=== PATIENT | female | born 1965 | race Caucasian/White ===

== ENCOUNTER → 2017-10-29 | Outpatient (CLI) | payer OTHER ==
[~2017-10-29] MED LIST: ASPI325 PO; Ativan1 MG PO; CLOP75 PO; COLCRYS0.6 MG PO; Crutch1 EACH MISC; GABA300 PO; LISI5 PO; LOSA25 PO; Lopressor 25 mg25 MG PO; METO50 PO; NITR.6SL PO; Nitrostat0.4 MG SL; Percocet 5-3251 EACH PO; Roxicodone5 MG PO; VICODIN 5-3001 EACH PO
[2017-10-31 15:22] LABS: HPV Genotype 16 Not Detected (NOTDET); HPV Genotype 18 Not Detected (NOTDET)
[2017-11-06 12:06] LABS: HPV High Risk Other Detected (NOTDET)
== END | disposition home or self-care (01) ==
LOC: LAB 15:04
PROVIDERS: Obstetrics & Gynecology
DX: Z01.419 Encounter for gynecological examination (general) (routine) without abnormal findings (principal)
CPT/HCPCS: 87624; G0123

== ENCOUNTER → 2019-05-28 | Outpatient (CLI) | payer BC, OTHER ==
[2019-05-30 14:07] LABS: HPV 16 Negative (Negative); HPV 18 Negative (Negative); HPV OTHER HR TYPES Negative (Negative)
== END ==
LOC: LAB 16:25 → LAB SHORT 16:25
PROVIDERS: Nurse Practitioner Family
DX: Z12.4 Encounter for screening for malignant neoplasm of cervix (principal)
CPT/HCPCS: 87070; 87205; 87624; 88175

== ENCOUNTER 2019-12-30 12:24 | Emergency (ER) | payer OTHER ==
[~2019-12-30] VITALS: Ht 165.1 cm; Wt 65.8 kg
[2019-12-30 12:43] LABS: BASOPHILS ABSOLUTE AUTO 0.04 K/mm3 (0.00-0.23); BASOPHILS PERCENT AUTO 1 % (0-2); EOSINOPHILS ABSOLUTE AUTO 0.05 K/mm3 (0.00-0.68); EOSINOPHILS PERCENT AUTO 1 % (0-6); Hematocrit 48.3 % (33.0-51.0); Hemoglobin 16.3 g/dL (11.5-16.0); IMMATURE GRAN ABSOLUTE AUTO 0.02 K/mm3 (0.00-0.10); IMMATURE GRAN PERCENT AUTO 0 % (0-1); LYMPHOCYTES ABSOLUTE AUTO 2.27 K/mm3 (0.84-5.20); LYMPHOCYTES PERCENT AUTO 28 % (21-46); MONOCYTES ABSOLUTE AUTO 0.58 K/mm3 (0.16-1.47); MONOCYTES PERCENT AUTO 7 % (4-13); Mean Corpuscular HGB 31.7 pg (26.0-34.0); Mean Corpuscular HGB Conc 33.7 g/dL (31.5-36.5); Mean Corpuscular Volume 94 fL (80-100); Mean Platelet Volume 10.6 fL (9.1-12.4); NEUTROPHILS ABSOLUTE AUTO 5.16 K/mm3 (1.96-9.15); NEUTROPHILS PERCENT AUTO 64 % (41-73); Platelet Count 323 K/mm3 (150-400); RDW Coefficient Variation 12.1 % (11.7-14.2); RDW Standard Deviation 42.4 fL (35.1-46.3); Red Blood Cell Count 5.14 M/mm3 (3.80-5.20); White Blood Cell Count 8.12 K/mm3 (4.00-11.30)
[2019-12-30] MEDS ORDERED: Aspir 8181 MG PO (12:44)
[2019-12-30] MEDS ORDERED: EZET10 PO (12:45)
[2019-12-30] MEDS ORDERED: Crestor20 MG PO (12:45)
[2019-12-30] MEDS ORDERED: AMLO5 PO ×2 (12:46→14:34)
[2019-12-30 13:05] LABS: Alanine Aminotransfer (ALT/SGP 60 U/L (12-78); Albumin, Blood 4.4 g/dL (3.4-5.0); Albumin/Globulin Ratio 1.2 (0.8-1.8); Alk Phos 150 U/L (50-136); Anion Gap 8 mmol/L (6-16); Aspartate Aminotrans (AST/SGOT 42 U/L (12-37); Bilirubin, Total 0.5 mg/dL (0.1-1.0); Blood Urea Nitrogen 34 mg/dL (8-24); CO2, Blood 26 mmol/L (21-32); Calcium, Blood 9.7 mg/dL (8.5-10.1); Chloride, Blood 106 mmol/L (98-108); Creatinine, Blood 0.87 mg/dL (0.40-1.00); Globulin, Blood 3.6 g/dL (2.2-4.0); Glomerular Filtration Rate >60 (60-); Glucose, Blood 101 mg/dL (70-99); Potassium, Blood 3.6 mmol/L (3.5-5.5); Sodium, Blood 140 mmol/L (136-145); Troponin I <0.015 ng/mL (0.000-0.040)
[2019-12-30] MEDS ORDERED: Nitrostat0.4 MG SL (14:34)
== END 2019-12-30 14:48 | disposition home or self-care (01) ==
LOC: ER 12:24
PROVIDERS: Emergency Medicine
DX: I20.8 Other forms of angina pectoris (principal); I10 Essential (primary) hypertension; I25.2 Old myocardial infarction; Z87.891 Personal history of nicotine dependence; Z95.5 Presence of coronary angioplasty implant and graft; Z88.2 Allergy status to sulfonamides; Z88.6 Allergy status to analgesic agent; Z88.8 Allergy status to other drugs, medicaments and biological substances; Z79.82 Long term (current) use of aspirin; Z79.899 Other long term (current) drug therapy
CPT/HCPCS: 71046; 80053; 83690; 84484; 85025; 93005; 93010; 99285-25

== ENCOUNTER 2020-07-26 07:52 | Inpatient (IN) | payer OTHER ==
[~2020-07-26] VITALS: Ht 165.1 cm; Wt 79.0 kg
[~2020-07-26 07:52] MED LIST changes: +AMLO5 PO; +Aspir 8181 MG PO; +Crestor20 MG PO; +EZET10 PO
[2020-07-26] MEDS ORDERED: NEBI5 PO (08:17)
[2020-07-26] MEDS ORDERED: ISOMON20 (08:18)
[2020-07-26 08:27] LABS: BASOPHILS ABSOLUTE AUTO 0.09 K/mm3 (0.00-0.23); BASOPHILS PERCENT AUTO 1 % (0-2); EOSINOPHILS ABSOLUTE AUTO 0.45 K/mm3 (0.00-0.68); EOSINOPHILS PERCENT AUTO 5 % (0-6); Hematocrit 44.7 % (33.0-51.0); IMMATURE GRAN ABSOLUTE AUTO 0.04 K/mm3 (0.00-0.10); IMMATURE GRAN PERCENT AUTO 0 % (0-1); LYMPHOCYTES ABSOLUTE AUTO 2.79 K/mm3 (0.84-5.20); LYMPHOCYTES PERCENT AUTO 29 % (21-46); MONOCYTES ABSOLUTE AUTO 0.72 K/mm3 (0.16-1.47); MONOCYTES PERCENT AUTO 7 % (4-13); Mean Corpuscular HGB 31.8 pg (26.0-34.0); Mean Corpuscular HGB Conc 33.6 g/dL (31.5-36.5); Mean Corpuscular Volume 95 fL (80-100); Mean Platelet Volume 10.3 fL (9.1-12.4); NEUTROPHILS ABSOLUTE AUTO 5.71 K/mm3 (1.96-9.15); NEUTROPHILS PERCENT AUTO 58 % (41-73); Platelet Count 330 K/mm3 (150-400); RDW Coefficient Variation 14.6 % (11.7-14.2); RDW Standard Deviation 50.7 fL (35.1-46.3); Red Blood Cell Count 4.72 M/mm3 (3.80-5.20)
[2020-07-26 08:51] LABS: Alanine Aminotransfer (ALT/SGP 76 U/L (12-78); Albumin, Blood 3.7 g/dL (3.4-5.0); Albumin/Globulin Ratio 1.1 (0.8-1.8); Alk Phos 178 U/L (50-136); Anion Gap 9 mmol/L (6-16); Aspartate Aminotrans (AST/SGOT 98 U/L (12-37); Bilirubin, Total 0.4 mg/dL (0.1-1.0); Blood Urea Nitrogen 10 mg/dL (8-24); Bun/Creatinine Ratio 12.5 (12.0-20.0); CO2, Blood 25 mmol/L (21-32); Calcium, Blood 8.8 mg/dL (8.5-10.1); Chloride, Blood 109 mmol/L (98-108); Globulin, Blood 3.5 g/dL (2.2-4.0); Glomerular Filtration Rate >60 (60-); Glucose, Blood 128 mg/dL (70-99); Magnesium, Blood 1.9 mg/dL (1.6-2.4); Potassium, Blood 2.9 mmol/L (3.5-5.5); Sodium, Blood 143 mmol/L (136-145); Total Protein, Blood 7.2 g/dL (6.4-8.2); Troponin I <0.015 ng/mL (0.000-0.040)
[2020-07-26 09:52] LABS: International Normalized Ratio 0.99; Prothrombin Time Results 10.6 Sec (9.7-11.5)
[2020-07-26] MEDS ORDERED: OXYC10TA19 PO (11:38)
[2020-07-26] MEDS ORDERED: ISOSORBIDE MONO30 MG PO (11:40)
[2020-07-26] MEDS ORDERED: LISI20 PO (11:40)
--- NOTE | 2020-07-26 18:22 | NUR ---
PT ARRIVAL ON UNIT... PT ARRIVED ON UNIT APROX 1630, PT IS A&Ox4 AND S/P ANGIO W/STENT ON A NITRO GTT RUNNING AT 80MCG/MIN. PT HAS RIGHT RADIAL ACCESS WITH TR BAND IN PLACE, NO SWELLING BLEEDING OR HEMATOMA NOTED AT THE SITE. PT IS IN SINUS ANU IN THE 50'S, PT'S BP STABLE. PT C/O OF 3/10 CHEST PAIN AND A HEADACHE OF 8/10. PT MEDICATED PER EMAR WITH MINIMAL RESULTS FOR THE HEADACHE. NO EDEMA NOTED ON ASSESSMENT. L/S SLIGHTLY COARSE T/O PT IS ON RA W/O2 SATS>92%. BT PRESENT AND HYPERACTIVE ABD IS SOFT AND NONTENDER TO PALP. PT'S AT THE BEDSIDE ON ARRIVAL. PER DECREASE THE NITRO GTT BY 10MCG PER OUR UNTIL OFF. CALL LIGHT IN REACH WILL CONTINUE TO MONITOR UNTIL REPORT IS GIVEN TO ONCOMING RN.
--- NOTE | 2020-07-26 19:00 | NUR ---
ASSUMED CARE NOTE: ASSUMED CARE OF PT 1899, RECEVIED REPORT FROM MINAL TREVINO. PT IS ALERT/ORIENTEDX4, ABLE TO COMMUNICATE NEEDS EFFECTIVLEY. PT IS ON RA WITH SPO2 AT 97% PT IN SINUS ANU WITH HR IN THE HIGH 50'S. PT C/O 10/10 HEADACHE, AND 2/10 CHEST PAIN. NITRO DRIP AT 40MCG/MIN. TR BAND RIGHT RADIAL ACCESS SITE IN PLACE WITH 8CC AIR INFLATED, PER REPORT. NO ACTIVE BLEEDING TO SITE, SMALL HEMATOMA NOTED, WARM, PINK, SLIGHT SWELLING TO HAND, RING REMOVED, GOOD PULSE. PT IS A STAND BY ASSIST TO BEDSIDE TOILET. WILL CONTINUE TO MONITOR PT T/O SHIFT.
--- NOTE | 2020-07-26 20:40 | NUR ---
CALLED REGARDING PT'S HEADACHE 07/24 PAIN RELATED TO NITRO. ORDERS TO D/C NITRO GIVEN. ORDERS TO INCREASE NORVASC TO 5MG BID GIVEN. WILL CONTINUE TO CY
--- NOTE | 2020-07-26 21:14 | NUR ---
UPDATE: CALLED REGARDING PT'S 07/24 HEADACHE. ORDERS FOR ONE TIME DOSE OF MORPHINE GIVEN.
--- NOTE | 2020-07-26 23:56 | NUR ---
TR BAND OFF, NO ACTIVE BLEEDING TO SITE, SMALL HEMATOMA NOTICED ABOVE SITE. RIGHT HAND IS WARM, PINK, NO NUMBNESS OR TINGLING TO SITE. WILL CONTINUE TO MONITOR.
[2020-07-27 03:24] LABS: Hematocrit 35.5 % (33.0-51.0); Hemoglobin 11.8 g/dL (11.5-16.0); Mean Corpuscular HGB 31.6 pg (26.0-34.0); Mean Corpuscular HGB Conc 33.2 g/dL (31.5-36.5); Mean Corpuscular Volume 95 fL (80-100); Mean Platelet Volume 10.2 fL (9.1-12.4); Platelet Count 216 K/mm3 (150-400); RDW Coefficient Variation 14.8 % (11.7-14.2); RDW Standard Deviation 50.7 fL (35.1-46.3); Red Blood Cell Count 3.74 M/mm3 (3.80-5.20); White Blood Cell Count 5.96 K/mm3 (4.00-11.30)
[2020-07-27 03:42] LABS: Alanine Aminotransfer (ALT/SGP 66 U/L (12-78); Albumin, Blood 2.9 g/dL (3.4-5.0); Alk Phos 145 U/L (50-136); Anion Gap 7 mmol/L (6-16); Aspartate Aminotrans (AST/SGOT 94 U/L (12-37); Bilirubin, Total 0.7 mg/dL (0.1-1.0); Blood Urea Nitrogen 11 mg/dL (8-24); Bun/Creatinine Ratio 16.5 (12.0-20.0); CO2, Blood 25 mmol/L (21-32); Calcium, Blood 8.2 mg/dL (8.5-10.1); Chloride, Blood 111 mmol/L (98-108); Creatinine, Blood 0.67 mg/dL (0.40-1.00); Globulin, Blood 2.9 g/dL (2.2-4.0); Glomerular Filtration Rate >60 (60-); Glucose, Blood 86 mg/dL (70-99); Potassium, Blood 3.6 mmol/L (3.5-5.5); Sodium, Blood 143 mmol/L (136-145); Total Protein, Blood 5.8 g/dL (6.4-8.2)
--- NOTE | 2020-07-27 04:22 | NUR ---
UPDATE: CALLED REGARDING BP, CP 02/21. ORDERS FOR NIRCARDIPINE DRIP, GI COCKTAIL, AND 40MG OF PROTONIX IV NOW.
--- NOTE | 2020-07-27 06:17 | NUR ---
SHIFT SUMMARY: SEE PREVIOUS NOTES. CALLED, ORDERED TO CONTINUE NICARDIPINE DRIP (IF INTICATED) AFTER AM P.O. BLOOD PRESSURES , TITRATE DRIP 3-4 HOURS AFTER MEDICATION. PT CONTINUES TO BE ALERT AND ORIENTEDX4. PT ON RA WITH SPO2 ABOVE 90% PT IN SINUS ANU WITH HR IN THE 50'S, PT C/O CP (SEE PREVIOUS NOTE) T/O SHIFT, PHYSICAN AWARE. PT STS C/P HAS RESOLVED SINCE NICARDIPINE STARTED. BP STABLE, NICARDIPINE DRIP AT 5MG/HR. PT STS HEADACHE HAS ALSO IMPROVED. PT RECEVIED MORPHINE PER EMAR FOR PAIN, WITH LITTLE TO NO EFFECT. WILL CONTINUE TO MONITOR PT UNTIL REPORT IS GIVEN TO ONCOMING SHIFT.
--- NOTE | 2020-07-27 08:00 | NUR ---
Received reort from Josie TREVINO. Patient awake when entering room and is able to communicate her needs clearly. She is on RA and sats 98% on RA. Her Radial access on right radial has clear opsite in place and no hematoma or bleeding. It is slighly tender to touch. She has 20 ga IV to RAC dressing intact and site WNL's and is infusing Nicardipine at 5 mg/hr and reduced to 2.5 mg/hrat 0700. MAEW and is SBA when up out of bed to use bathroom. She has 20ga IV in LAC dressing intact and site WNL's flushed and SL'd.
--- NOTE | 2020-07-27 09:10 | NUR ---
Patient tolerated am meds well. She has renal US and is done. Dr Cárdenas by and stated after am meds stop Nicardipine gtt. She was up to bathroom with SBA, and tolerated well. She denies wanting breakfast currently. Medicated ealier for 9/10 pain for headache. and is doing better now.
--- NOTE | 2020-07-27 12:30 | NUR ---
Patient is now PCU status. She states has ongoing headache that decreases briefly then comes back 9/10. Independent in room. VSS, See EMR. Dr Cárdenas wants to keep another day to monitor BP, currently 140 systolic. Nicardipine gtt remains off.
--- NOTE | 2020-07-27 14:45 | NUR ---
Patient awaiting room. Her headache has resolved and has been resting with at bedside. Father Jr by for visit. VSS, systolic 130-140's. Right radial site WNL's. Denies any current needs.
--- NOTE | 2020-07-27 16:30 | NUR ---
Huong with Dr Cárdenas for PRN med for hypertension. Nicardipine 1mg Q4 prn. She states increased pain from head ache and will medicate one time with Imitrex per DEC. HR 50, and systolic 150's and has been throwing more PVC and patient states feeling flutter in chest.
--- NOTE | 2020-07-27 18:36 | NUR ---
Patient medicated for pain/headache with morphine per DEC. Removed IV LAC as did not flush well. Remains hypertensive 150's systolic, HR 50's. Patient has been trying to rest but headache keeps returning. Independent in room and SBA with lines. Remains PCU status and possible discharge tomorrow.
--- NOTE | 2020-07-27 20:00 | NUR ---
ASSUMED CARE: A&O X 4. INDEPENDENT IN ROOM. C/O PERSISTENT OLGUIN 04/23 CURRENTLY. SBP IN THE 50-60S. SR WITH SOME PVCS. SBP ELEVATED IN THE 170S. LUNG SOUNDS CLEAR ON RA. R RADIAL ACCESS SITE C/D/I. SOME TENDERNESS. PIV IN RFA. WILL CONTINUE TO MONITOR
--- NOTE | 2020-07-27 20:30 | NUR ---
DR SMITH CALLED. ORDERS RECEIVED FOR STAT CT OF HEAD WO CONTRAST.
--- NOTE | 2020-07-27 23:23 | NUR ---
PT STILL HAVING PERSISTENT HEADACHE. SBP IN THE 170S AFTER DOSE OF MORPHINE. NICARDIPINE IVP GIVEN. SBP NOW 190S. CALL PLACED TO DR SMITH AND ORDERS RECEIVED TO RESTART NICARDIPINE GTT AT 5MG/HR AND TO TITRATE Q HOUR TO MAX. ALSO GIVE PRAZOSIN 5MG PO X 1. FOR PAIN MANAGEMENT TO CALL HOSPITALIST
[2020-07-28 03:53] LABS: Anion Gap 4 mmol/L (6-16); Blood Urea Nitrogen 11 mg/dL (8-24); CO2, Blood 29 mmol/L (21-32); Calcium, Blood 8.4 mg/dL (8.5-10.1); Chloride, Blood 108 mmol/L (98-108); Creatinine, Blood 0.73 mg/dL (0.40-1.00); Glomerular Filtration Rate >60 (60-); Glucose, Blood 134 mg/dL (70-99); Magnesium, Blood 1.9 mg/dL (1.6-2.4); Potassium, Blood 3.2 mmol/L (3.5-5.5); Sodium, Blood 141 mmol/L (136-145)
--- NOTE | 2020-07-28 06:12 | NUR ---
SHIFT SUMMARY: PT SLEPT MAJORITY OF NIGHT. DR SMITH HAD A CONVERSATION WITH CESAR MITTAL REGARDING LABS AND PAIN MANAGEMENT. MORPHINE ORDER D/C AND CHANGED TO FENTANYL. NICARDIPINE GTT CURRENTLY OFF. SBP IN THE 110S. FENTANYL 50MCG, IVP GIVEN X 3 WITH GOOD RESULTS. SPO2 >90%. IN SR WITH SOME PVCS. SPO2 >90% ON RA. DR SMITH JUST CALLED FOR UPDATE-UPDATE GIVEN. R RADIAL ACCESS SITE C/D/I. GOOD PULSES. WILL PASS REPORT TO ONCOMING SHIFT.
--- NOTE | 2020-07-28 07:30 | NUR ---
Received report from Samuel TREVINO. Patient sleeping when entering room and awakkened eaily to verbal stimuli. She alert and oriented and is able to communicate her needs. She is on RA and sats in the upper 90%'s. She currently denies any headache and systolic 120's. She is independent in room. She has 20ga IV to RAC dressing intact and site WNL's NIcardipine gtt remains off.
--- NOTE | 2020-07-28 09:30 | NUR ---
Dr Daniels by to see patient. Medicated with Fentanyl for 8-9/10 pain from headache. Systolic still 130's HR 50's. Patient awake watching TV. She denies any other needs. VSS, See EMR.
--- NOTE | 2020-07-28 12:00 | NUR ---
Talked with Dr Cárdenas and Dr Daniels and plan is patient being discharged. Medicated a little bit ago per MAR for headache pain. He brought lunch and she is tolerating well. Systolic remains 130's and HR 60's. She is very anxious to go home. She was independent to bathroom .
[2020-07-28] MEDS ORDERED: ACET325 PO (12:56)
[2020-07-28] MEDS ORDERED: CARV3.125 PO (12:58)
[2020-07-28] MEDS ORDERED: LOSA50 PO (12:59)
[2020-07-28] MEDS ORDERED: PANT40 PO (12:59)
[2020-07-28] MEDS ORDERED: PRAZ2 PO (13:00)
[2020-07-28] MEDS ORDERED: Aldactone50 MG PO (13:01)
--- NOTE | 2020-07-28 13:43 | NUR ---
Pt. is doing much better and may go,home today ,prayed for her.
[2020-07-31 15:10] LABS: METANEPHRINE, PL 23.5 pg/mL (0.0-88.0); NORMETANEPHRINE, PL 42.8 pg/mL (0.0-136.8)
[2020-08-04 06:09] LABS: ALDOS/RENIN RATIO <5.3 (0.0-30.0); ALDOSTERONE <1.0 ng/dL (0.0-30.0)
== END 2020-07-28 13:49 | disposition home or self-care (01) | DRG 246 ==
LOC: ER 07:52 → ERHOLD 10:15 → ICUW 10:15
PROVIDERS: Emergency Medicine; Internal Medicine Cardiovascular Disease; Nurse Practitioner Acute Care; ADMIT Internal Medicine
PROC: 4A023N7 Measurement of Cardiac Sampling and Pressure, Left Heart, Percutaneous Approach (ICD-10-PCS; principal; 2020-07-26)
PROC: 027034Z Dilation of Coronary Artery, One Artery with Drug-eluting Intraluminal Device, Percutaneous Approach (ICD-10-PCS; 2020-07-26)
PROC: 02703ZZ Dilation of Coronary Artery, One Artery, Percutaneous Approach (ICD-10-PCS; 2020-07-26)
PROC: B2111ZZ Fluoroscopy of Multiple Coronary Arteries using Low Osmolar Contrast (ICD-10-PCS; 2020-07-26)
DX: I25.110 Atherosclerotic heart disease of native coronary artery with unstable angina pectoris (principal); I21.4 Non-ST elevation (NSTEMI) myocardial infarction; I10 Essential (primary) hypertension; I25.2 Old myocardial infarction; Z87.891 Personal history of nicotine dependence; I49.8 Other specified cardiac arrhythmias; E87.6 Hypokalemia; E78.5 Hyperlipidemia, unspecified; Z95.5 Presence of coronary angioplasty implant and graft; Z79.02 Long term (current) use of antithrombotics/antiplatelets
CPT/HCPCS: 36415; 70450; 71046; 80048; 80053; 82088; 83735; 83835; 84132; 84244; 84484; 85025; 85027; 85347; 85610; 85651; 85730; 86140; 86850; 86900; 86901; 92920; 92921; 93005; 93010; 93306; 93458; 93975; 96365; 96375; 96376; 99152; 99153; 99285-25; A9270; A9270-GY; C1725; C1769; C1874; C1887; C1894; C9113; C9600; J1644; J1650; J2060; J2250; J2270; J3010; J3480; J7030; J7040; J7050; Q9967

== ENCOUNTER 2021-04-19 19:50 | Observation (INO) | payer OTHER ==
[~2021-04-19] VITALS: Ht 165.1 cm; Wt 72.8 kg
[~2021-04-19 19:50] MED LIST changes: +ACET325 PO; +Aldactone50 MG PO; +CARV3.125 PO; +ISOMON20; +ISOSORBIDE MONO30 MG PO; +LISI20 PO; +LOSA50 PO; +NEBI5 PO; +OXYC10TA19 PO; +PANT40 PO; +PRAZ2 PO
[2021-04-19 20:37] LABS: BASOPHILS ABSOLUTE AUTO 0.05 K/mm3 (0.00-0.23); BASOPHILS PERCENT AUTO 0 % (0-2); EOSINOPHILS ABSOLUTE AUTO 0.06 K/mm3 (0.00-0.68); EOSINOPHILS PERCENT AUTO 0 % (0-6); Hematocrit 46.3 % (33.0-51.0); Hemoglobin 16.4 g/dL (11.5-16.0); IMMATURE GRAN ABSOLUTE AUTO 0.09 K/mm3 (0.00-0.10); IMMATURE GRAN PERCENT AUTO 1 % (0-1); LYMPHOCYTES ABSOLUTE AUTO 3.09 K/mm3 (0.84-5.20); LYMPHOCYTES PERCENT AUTO 21 % (21-46); MONOCYTES ABSOLUTE AUTO 1.08 K/mm3 (0.16-1.47); MONOCYTES PERCENT AUTO 7 % (4-13); Mean Corpuscular HGB 31.5 pg (26.0-34.0); Mean Corpuscular HGB Conc 35.4 g/dL (31.5-36.5); Mean Corpuscular Volume 89 fL (80-100); Mean Platelet Volume 10.6 fL (9.1-12.4); NEUTROPHILS ABSOLUTE AUTO 10.17 K/mm3 (1.96-9.15); NEUTROPHILS PERCENT AUTO 70 % (41-73); Platelet Count 387 K/mm3 (150-400); RDW Coefficient Variation 13.3 % (11.7-14.2); RDW Standard Deviation 43.7 fL (35.1-46.3); White Blood Cell Count 14.54 K/mm3 (4.00-11.30)
[2021-04-19 20:58] LABS: Albumin/Globulin Ratio 1.1 (0.8-1.8); Bilirubin, Total 0.6 mg/dL (0.1-1.0); Bun/Creatinine Ratio 26.6 (12.0-20.0); Calcium, Blood 9.5 mg/dL (8.5-10.1); Creatinine, Blood 2.07 mg/dL (0.40-1.00); Globulin, Blood 3.6 g/dL (2.2-4.0); Potassium, Blood 3.8 mmol/L (3.5-5.5); Total Protein, Blood 7.6 g/dL (6.4-8.2); Troponin I 0.041 ng/mL (0.000-0.040)
[2021-04-19] MEDS ORDERED: LISI20 PO (21:04)
[2021-04-19] MEDS ORDERED: NEBI5 PO (21:04)
[2021-04-19] MEDS ORDERED: AMLODIPINE BES2.5 MG PO (21:04)
--- NOTE | 2021-04-20 01:22 | NUR ---
ADMISSION: PATIENT IS RECIEVED FROM ER. REQUESTING A CLOSED ADMISSION. REPORTING CHEST PAIN 10/10 LIKE HEART BURN AND PRESSURE AND NAUSEA. PATIENT IS ALSO HAVING LOOSE STOOL. PATIENT IS ORIENTED TO ROOM AND CALL VALDOVINOS.
[2021-04-20 02:33] LABS: Bun/Creatinine Ratio 31.3 (12.0-20.0); Calcium, Blood 8.7 mg/dL (8.5-10.1); Creatinine, Blood 1.66 mg/dL (0.40-1.00); Potassium, Blood 3.7 mmol/L (3.5-5.5)
[2021-04-20 03:16] LABS: Adenovirus F 40/41 Not Detected (NOT DETECT); Astrovirus Not Detected (NOT DETECT); Campylobacter Sp Not Detected (NOT DETECT); Cryptosporidium Not Detected (NOT DETECT); Cyclospora Cayetanensis Not Detected (NOT DETECT); E. Coli O157 Not Detected (NOT DETECT); Entamoeba Histolytica Not Detected (NOT DETECT); Enteroaggregative E. coli-EAEC Not Detected (NOT DETECT); Enteropathogenic E. coli-EPEC Not Detected (NOT DETECT); Enterotoxigenic E. coli-ETEC Not Detected (NOT DETECT); Giardia Lamblia Not Detected (NOT DETECT); Norovirus GI/GII Not Detected (NOT DETECT); Plesiomonas Shigelloides Not Detected (NOT DETECT); Rotavirus A Not Detected (NOT DETECT); Salmonella Sp Not Detected (NOT DETECT); Sapovirus Not Detected (NOT DETECT); Shiga Toxin-prod E. coli-STEC Not Detected (NOT DETECT); Shigella/Enteroin E. coli-EIEC Not Detected (NOT DETECT); Vibrio Cholerae Not Detected (NOT DETECT); Vibrio Sp Not Detected (NOT DETECT); Yersinia Enterocolitica Not Detected (NOT DETECT)
--- NOTE | 2021-04-20 04:29 | NUR ---
PAIN/GI: DR GOLDEN WAS NOTIFIED OF NAUSEA AND CONTINUED PAIN AT ADMISSION. ORDERS FOR IV FENTANYL AND A 1 X DOSE OF ZOFRAN IV. THIS GAVE GOOD RELIEF FOR APPROXIMATELY 3 HOURS. PATIENT HAS NOW BEEN HAVING MULTIPLE LIQUID STOOLS. REPORTING CHEST PAIN AND NAUSEA, TO EARLY TO GIVE FENTANYL OR ZOFRAN. CALL IS PLACED TO DR GOLDEN. AWAITING CALL BACK.
--- NOTE | 2021-04-20 05:33 | NUR ---
SHIFT SUMMARY: PATIENT CONTINUES TO HAVE CHEST PAIN/PRESSURE, NAUSEA AND DIARRHEA. ORDERS OBTAINED FROM DR GOLDEN ARE DILAUDID 1MG Q 6 PRN, REGLAN AND IMODIUM. ALL MED WERE GIVEN. PATIENT IS SLEEPING AT RE-ASSESSMENT FOR DILAUDID. TROPONINS ARE TRENDING DOWN BUT GI COMPLIANTS PERSIST.
--- NOTE | 2021-04-20 12:06 | NUR ---
Advance Directive (AD) Education conducted. Patient tells me about her current health concerns and then expresses her interest in the ACP instrument. 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 I provide the forms and patient voices appreciation. I will continue to remain available to patient and family.
--- NOTE | 2021-04-20 16:46 | NUR ---
Echocardiogram completed.
--- NOTE | 2021-04-20 17:31 | NUR ---
SHIFT SUMMARY NO ACUTE EVENTS THIS SHIFT, VSS. PATIENT IS ALERT AND ORIENTED, COOPERATIVE WITH CARE. PT REMAINS ON ROOM AIR, TOLERATING WELL. PT ABLE TO AMBULATE INDEPENDENTLY TO BESIDE COMMODE, CONTINUED TO HAVE DIARRHEA T/O SHIFT. PT TOOK IMODIUM TWICE TODAY. PT HAS INTERMITTENT NAUSEA, VOMITED UP MORNING PILLS, DR. RAYGOZA AWARE. ZOFRAN/REGLAN GIVEN PER EMAR. PT CONTINUED TO COMPLAIN OF CHEST AND EPIGASTRIC PAIN T/O SHIFT, DR. RAYGOZA AWARE. PT STARTED ON PROTONIX THIS SHIFT AND TUMS PRN. DIAUDID AND FENTANYL GIVEN PER EMAR FOR PAIN. IV FLUIDS CONTINUED PER EMAR.
--- NOTE | 2021-04-21 05:12 | NUR ---
SHIFT SUMMARY PT REPORTED OVERALL HAVING A MUCH BETTER NIGHT. HAD ONE WATERY BOWEL MOVEMENT AT START OF SHIFT, NO OTHERS THE REMAINDER OF THE SHIFT. PT DID REPORT THAT SHE HAD BEEN VOIDING QUITE A BIT MORE WITH NO DIARRHEA. PT CONTINUED TO HAVE UPPER EPIGASTRIC PAIN, DESCRIBES IT LIKE MORE PAINFUL HEARTBURN. PT ALSO CONTINUES TO HAVE NAUSEA. NO EMESIS THIS EVENING. MEDICATED PER EMAR. PT SLEPT A GOOD PORTION OF THE SHIFT. PT DRINKING CONTRAST FOR CT THIS AM. VITAL SIGNS STABLE. WILL CONTINUE TO MONITOR.
[2021-04-21 05:58] LABS: Hematocrit 37.8 % (33.0-51.0); Mean Corpuscular HGB 32.2 pg (26.0-34.0); Mean Corpuscular HGB Conc 34.4 g/dL (31.5-36.5); Mean Platelet Volume 10.5 fL (9.1-12.4); Platelet Count 249 K/mm3 (150-400); RDW Coefficient Variation 13.7 % (11.7-14.2); RDW Standard Deviation 47.2 fL (35.1-46.3); Red Blood Cell Count 4.04 M/mm3 (3.80-5.20); White Blood Cell Count 5.88 K/mm3 (4.00-11.30)
[2021-04-21 06:08] LABS: Mean Corpuscular Volume 94 fL (80-100)
[2021-04-21 06:11] LABS: Alanine Aminotransfer (ALT/SGP 35 U/L (12-78); Albumin, Blood 3.1 g/dL (3.4-5.0); Albumin/Globulin Ratio 1.1 (0.8-1.8); Alk Phos 106 U/L (50-136); Anion Gap 4 mmol/L (6-16); Aspartate Aminotrans (AST/SGOT 23 U/L (12-37); Bilirubin, Direct 0.1 mg/dL (0.0-0.3); Bilirubin, Indirect 0.3 mg/dL (0.1-0.7); Bilirubin, Total 0.4 mg/dL (0.1-1.0); Blood Urea Nitrogen 25 mg/dL (8-24); Bun/Creatinine Ratio 26.8 (12.0-20.0); CO2, Blood 17 mmol/L (21-32); Calcium, Blood 8.5 mg/dL (8.5-10.1); Chloride, Blood 115 mmol/L (98-108); Creatinine, Blood 0.93 mg/dL (0.40-1.00); Globulin, Blood 2.9 g/dL (2.2-4.0); Glomerular Filtration Rate >60 (60-); Glucose, Blood 99 mg/dL (70-99); Magnesium, Blood 2.1 mg/dL (1.6-2.4); Phosphorus, Blood 2.2 mg/dL (2.5-4.9); Potassium, Blood 5.6 mmol/L (3.5-5.5); Sodium, Blood 136 mmol/L (136-145)
--- NOTE | 2021-04-21 16:56 | NUR ---
SHIFT SUMMARY PT AxOx4. INDEPENDENT IN THE ROOM AND COOPERATIVE WITH CARE. PT REPORTS FREQUENT LOOSE STOOL AND ABDOMINAL-CHEST PAIN T/O THIS SHIFT. PT MEDICATED PER EMAR. ABD CT DONE THIS AM AND STRESS TEST ORDERED. PT DECLINED STRESS TEST D/T PREVIOUS BAD EXPERIENCE WITH STRESS TEST. CURRENT PLAN IS TO DC FLUIDS, FOLLOW BP/VITALS, CHANGE PAIN MEDS TO ORAL, AND MONITOR SYMPTOMS OVERNIGHT. PROBABLY DC TOMORROW. PT VERBALIZES UNDERSTANDING OF PLAN. VITALS REVIEWED. PT TOLERATING MEALS WELL. PT CURRENTLY RESTING IN BED WITH CALL LIGHT IN REACH. DENIES ANY NEEDS AT THIS TIME.
--- NOTE | 2021-04-22 05:05 | NUR ---
SHIFT SUMMARY PT REPORTS FEELING SOMEWHAT BETTER THIS EVENING BUT INDIGESTION, UPPER GI PAIN, AND NAUSEA REMAIN. PT REPORTED THAT PO MEDICATION AT START OF SHIFT WAS HELPING BUT SHE FELT LIKE IT WAS NOT COVERING HER PAIN ADEQUATELY AT START OF SHIFT. ONE TIME ORDER FOR 1 MG IV DILAUDID GIVEN. REMAINING DOSES OF PO MEDICATION ADEQUATE PER PT. MEDICATED PER EMAR. ZOFRAN AND REGLAN GIVEN THROUGHOUT THE NIGHT. ONE DOSE OF IMMODIUM GIVEN EARLY IN THE SHIFT. ONE BOWEL MOVEMENT REPORTS JUST BEFORE IMMODIUM DOSE. NO MORE BOWEL MOVEMENTS THE REST OF THE SHIFT. VITAL SIGNS STABLE. TELEMETRY READING SR IN THE 70'S. WILL CONTINUE TO MONITOR AND REPORT TO DAY RN.
[2021-04-22 06:26] LABS: Anion Gap 5 mmol/L (6-16); Blood Urea Nitrogen 13 mg/dL (8-24); Bun/Creatinine Ratio 17.3 (12.0-20.0); CO2, Blood 19 mmol/L (21-32); Calcium, Blood 8.6 mg/dL (8.5-10.1); Chloride, Blood 115 mmol/L (98-108); Creatinine, Blood 0.75 mg/dL (0.40-1.00); Glomerular Filtration Rate >60 (60-); Glucose, Blood 100 mg/dL (70-99); Phosphorus, Blood 2.8 mg/dL (2.5-4.9); Potassium, Blood 5.4 mmol/L (3.5-5.5); Sodium, Blood 139 mmol/L (136-145)
[2021-04-22] MEDS ORDERED: IMODIUM A-D2 M1 PO (11:48)
[2021-04-22] MEDS ORDERED: PANT40 PO (11:49)
--- NOTE | 2021-04-22 14:22 | NUR ---
1300PT DISCHARGE REVIEWED WITH PT. SHE VBERBALIZED UNDERSTANDING MEDS AND IS ALREADY MAKING DR GARCIA HERSELF. WORKS AND NEEDS TO MAKE THEM FOR HER SCHEDULE. IV PULLED INTACT. TELE REMOVED AND RETURNED. PT WALKED TO DOOR BY ME AT 1300
[2021-04-23] MEDS ORDERED: PERCOCET 10-321 EAC4 PO (09:49)
== END 2021-04-22 13:00 | disposition home or self-care (01) ==
LOC: ER 19:50 → MEDS 19:51 → ENPENDDIS 04-22 12:36 → MEDS 04-22 13:00
PROVIDERS: Family Medicine; Internal Medicine; Physician Assistant; ADMIT Internal Medicine
DX: R07.89 Other chest pain (principal); R79.89 Other specified abnormal findings of blood chemistry; I95.9 Hypotension, unspecified; I25.10 Atherosclerotic heart disease of native coronary artery without angina pectoris; I25.2 Old myocardial infarction; E78.5 Hyperlipidemia, unspecified; D64.9 Anemia, unspecified; N17.9 Acute kidney failure, unspecified; E86.0 Dehydration; K52.9 Noninfective gastroenteritis and colitis, unspecified; D72.829 Elevated white blood cell count, unspecified; M54.9 Dorsalgia, unspecified; G89.29 Other chronic pain; R11.2 Nausea with vomiting, unspecified; R10.13 Epigastric pain; K57.30 Diverticulosis of large intestine without perforation or abscess without bleeding; I11.9 Hypertensive heart disease without heart failure; I34.0 Nonrheumatic mitral (valve) insufficiency; R61 Generalized hyperhidrosis; Z88.2 Allergy status to sulfonamides; Z88.5 Allergy status to narcotic agent; Z88.8 Allergy status to other drugs, medicaments and biological substances; Z95.5 Presence of coronary angioplasty implant and graft; Z87.891 Personal history of nicotine dependence
CPT/HCPCS: 0097U; 36415; 71046; 74177; 80048; 80053; 80069; 82248; 83735; 84100; 84132; 84484; 85025; 85027; 85651; 86140; 93005; 93010; 93306; 96361; 96372; 96374; 96375; 96376; 99285-25; A9270; C9113; G0378; J1170; J1650; J2405; J2765; J3010; J7030; Q9967

== ENCOUNTER 2021-04-22 18:55 | Emergency (ER) | payer OTHER ==
[~2021-04-22] VITALS: Ht 165.1 cm; Wt 70.3 kg
[~2021-04-22 18:55] MED LIST changes: +AMLODIPINE BES2.5 MG PO; +IMODIUM A-D2 M1 PO
[2021-04-23] MEDS ORDERED: PERCOCET 10-321 EAC4 PO (09:49)
== END 2021-04-22 19:54 | disposition left against medical advice (07) ==
LOC: ER 18:55
DX: Z76.0 Encounter for issue of repeat prescription (principal); Z53.21 Procedure and treatment not carried out due to patient leaving prior to being seen by health care provider
CPT/HCPCS: 99281

== ENCOUNTER 2021-04-23 08:50 | Emergency (ER) | payer OTHER ==
[~2021-04-23] VITALS: Ht 165.1 cm; Wt 68.0 kg
[2021-04-23] MEDS ORDERED: PERCOCET 10-321 EAC4 PO (09:49)
== END 2021-04-23 10:00 | disposition home or self-care (01) ==
LOC: ER 08:50
DX: Z76.0 Encounter for issue of repeat prescription (principal); Z87.891 Personal history of nicotine dependence; E78.5 Hyperlipidemia, unspecified; I10 Essential (primary) hypertension
CPT/HCPCS: 99281

== ENCOUNTER 2021-07-17 12:11 | Inpatient (IN) | payer OTHER ==
[~2021-07-17] VITALS: Ht 165.1 cm; Wt 70.3 kg
[~2021-07-17 12:11] MED LIST changes: +PERCOCET 10-321 EAC4 PO
[2021-07-17 12:34] LABS: BASOPHILS ABSOLUTE AUTO 0.07 K/mm3 (0.00-0.23); BASOPHILS PERCENT AUTO 0 % (0-2); EOSINOPHILS ABSOLUTE AUTO 0.01 K/mm3 (0.00-0.68); EOSINOPHILS PERCENT AUTO 0 % (0-6); Hematocrit 43.1 % (33.0-51.0); Hemoglobin 15.2 g/dL (11.5-16.0); IMMATURE GRAN ABSOLUTE AUTO 0.07 K/mm3 (0.00-0.10); IMMATURE GRAN PERCENT AUTO 0 % (0-1); LYMPHOCYTES ABSOLUTE AUTO 1.06 K/mm3 (0.84-5.20); LYMPHOCYTES PERCENT AUTO 7 % (21-46); MONOCYTES ABSOLUTE AUTO 0.59 K/mm3 (0.16-1.47); MONOCYTES PERCENT AUTO 4 % (4-13); Mean Corpuscular HGB 33.2 pg (26.0-34.0); Mean Corpuscular HGB Conc 35.3 g/dL (31.5-36.5); Mean Corpuscular Volume 94 fL (80-100); Mean Platelet Volume 10.4 fL (9.1-12.4); NEUTROPHILS ABSOLUTE AUTO 13.84 K/mm3 (1.96-9.15); NEUTROPHILS PERCENT AUTO 89 % (41-73); Platelet Count 309 K/mm3 (150-400); RDW Coefficient Variation 13.4 % (11.7-14.2); RDW Standard Deviation 46.3 fL (35.1-46.3); Red Blood Cell Count 4.58 M/mm3 (3.80-5.20); White Blood Cell Count 15.64 K/mm3 (4.00-11.30)
[2021-07-17 12:51] LABS: Alanine Aminotransfer (ALT/SGP 92 U/L (12-78); Albumin, Blood 3.6 g/dL (3.4-5.0); Albumin/Globulin Ratio 1.1 (0.8-1.8); Alk Phos 164 U/L (50-136); Anion Gap 12 mmol/L (6-16); Aspartate Aminotrans (AST/SGOT 177 U/L (12-37); Bilirubin, Total 0.8 mg/dL (0.1-1.0); Blood Urea Nitrogen 15 mg/dL (8-24); Bun/Creatinine Ratio 21.9 (12.0-20.0); CO2, Blood 19 mmol/L (21-32); Calcium, Blood 9.5 mg/dL (8.5-10.1); Chloride, Blood 109 mmol/L (98-108); Creatinine, Blood 0.69 mg/dL (0.40-1.00); Globulin, Blood 3.4 g/dL (2.2-4.0); Glomerular Filtration Rate >60 (60-); Glucose, Blood 129 mg/dL (70-99); Potassium, Blood 3.5 mmol/L (3.5-5.5); Sodium, Blood 140 mmol/L (136-145)
[2021-07-17 17:29] LABS: SARS-Cov-2 (COVID-19) PCR, MMC NEGATIVE (NEGATIVE)
[2021-07-17] MEDS ORDERED: LISI20 PO (21:21)
[2021-07-17] MEDS ORDERED: Amlodipine Bes2.5 MG PO (21:23)
[2021-07-18 05:04] LABS: BASOPHILS ABSOLUTE AUTO 0.05 K/mm3 (0.00-0.23); BASOPHILS PERCENT AUTO 0 % (0-2); EOSINOPHILS ABSOLUTE AUTO 0.14 K/mm3 (0.00-0.68); EOSINOPHILS PERCENT AUTO 1 % (0-6); Hematocrit 45.3 % (33.0-51.0); Hemoglobin 15.5 g/dL (11.5-16.0); IMMATURE GRAN ABSOLUTE AUTO 0.06 K/mm3 (0.00-0.10); IMMATURE GRAN PERCENT AUTO 0 % (0-1); LYMPHOCYTES ABSOLUTE AUTO 1.39 K/mm3 (0.84-5.20); LYMPHOCYTES PERCENT AUTO 10 % (21-46); MONOCYTES ABSOLUTE AUTO 0.69 K/mm3 (0.16-1.47); MONOCYTES PERCENT AUTO 5 % (4-13); Mean Corpuscular HGB 32.6 pg (26.0-34.0); Mean Corpuscular HGB Conc 34.2 g/dL (31.5-36.5); Mean Corpuscular Volume 95 fL (80-100); Mean Platelet Volume 10.9 fL (9.1-12.4); NEUTROPHILS ABSOLUTE AUTO 11.17 K/mm3 (1.96-9.15); NEUTROPHILS PERCENT AUTO 83 % (41-73); Platelet Count 250 K/mm3 (150-400); RDW Coefficient Variation 13.5 % (11.7-14.2); RDW Standard Deviation 47.9 fL (35.1-46.3); Red Blood Cell Count 4.75 M/mm3 (3.80-5.20)
[2021-07-18 05:28] LABS: Albumin, Blood 3.2 g/dL (3.4-5.0); Anion Gap 7 mmol/L (6-16); Blood Urea Nitrogen 16 mg/dL (8-24); Bun/Creatinine Ratio 21.3 (12.0-20.0); CHOL/HDL RATIO 2.9; CO2, Blood 25 mmol/L (21-32); Calcium, Blood 9.3 mg/dL (8.5-10.1); Chloride, Blood 106 mmol/L (98-108); Cholesterol 156 mg/dL (50-200); Creatinine, Blood 0.75 mg/dL (0.40-1.00); Glomerular Filtration Rate >60 (60-); Glucose, Blood 98 mg/dL (70-99); HDL Cholesterol 53 mg/dL (>39); LDL/HDL RATIO 1.3; Low Density Lipoprotein Chol 67 mg/dL (0-110); Phosphorus, Blood 3.3 mg/dL (2.5-4.9); Potassium, Blood 3.3 mmol/L (3.5-5.5); Sodium, Blood 138 mmol/L (136-145); Triglycerides 181 mg/dL (30-160); Very Low Density Lipoprot Chol 36 mg/dL (6-32)
--- NOTE | 2021-07-18 06:14 | NUR ---
CIVIL LITIGATION ATTORNEY SUMMARY PATIENT STATED THAT THE MORPHINE ADVANCED PRACTICE RN WAS NOT CONTROLLING HER PAIN BUT MAKING HER SLEEPY. SHE SAID SHE HAD DILAUDID AT THE ED AND THAT HELPED HER PAIN. SHE SAID SHE WANTED THE MORPHINE ADVANCED PRACTICE RN SWITCHED TO ADVANCED PRACTICE RN DILAUDID. OK WITH THE CHANGE, PHARMACY TO DOSE. PATIENT ADVANCED PRACTICE RN WAS SWITCHED TO DILAUDID. WILL CONTINUE TO MONITOR PATIENT.
--- NOTE | 2021-07-18 19:07 | NUR ---
Resumed care at 7am. Alert and oriented x3. Admitted with acute pancreatic. c/o nausea , Zofran 4 mg IV was given and it was effective . continue on Dilaudid AERODYNAMIC CONSULTANT for pain management, it was effective. On clear liquid diet , advanced as tolerated. Independent in ROOM. On continou oxygen monitoring , sp02 at 95-96% on RA. Vital signs are stable, Potassium 3.3 this AM , potassim 20 meq given this morning, Continue to monitor.
--- NOTE | 2021-07-19 02:55 | NUR ---
PATIENT IS ALERT AND RESPONSIVE. PATIENT STATED FEELING BETTER BETWEEN YESTERDAY AND TODAY. PATIENT DENIES SOB, CHEST PAIN, PALPITATION. PATIENT REPORTED THE CYBER OPERATOR PUMP MAY BE STOPPED TODAY AND IV PUMP MAY BE USED FOR HER MEDICINES. WILL CONTINUE TO MONITOR AND ENCOURAGE.
[2021-07-19 04:59] LABS: BASOPHILS ABSOLUTE AUTO 0.05 K/mm3 (0.00-0.23); BASOPHILS PERCENT AUTO 0 % (0-2); EOSINOPHILS ABSOLUTE AUTO 0.28 K/mm3 (0.00-0.68); EOSINOPHILS PERCENT AUTO 2 % (0-6); Hematocrit 38.4 % (33.0-51.0); Hemoglobin 13.2 g/dL (11.5-16.0); IMMATURE GRAN ABSOLUTE AUTO 0.07 K/mm3 (0.00-0.10); IMMATURE GRAN PERCENT AUTO 1 % (0-1); LYMPHOCYTES PERCENT AUTO 11 % (21-46); MONOCYTES ABSOLUTE AUTO 0.63 K/mm3 (0.16-1.47); MONOCYTES PERCENT AUTO 5 % (4-13); Mean Corpuscular HGB 32.9 pg (26.0-34.0); Mean Corpuscular HGB Conc 34.4 g/dL (31.5-36.5); Mean Corpuscular Volume 96 fL (80-100); NEUTROPHILS ABSOLUTE AUTO 9.57 K/mm3 (1.96-9.15); NEUTROPHILS PERCENT AUTO 80 % (41-73); Platelet Count 168 K/mm3 (150-400); RDW Coefficient Variation 13.6 % (11.7-14.2); RDW Standard Deviation 48.1 fL (35.1-46.3); Red Blood Cell Count 4.01 M/mm3 (3.80-5.20)
[2021-07-19 05:19] LABS: Albumin, Blood 2.6 g/dL (3.4-5.0); Anion Gap 7 mmol/L (6-16); Blood Urea Nitrogen 14 mg/dL (8-24); CO2, Blood 26 mmol/L (21-32); Calcium, Blood 8.5 mg/dL (8.5-10.1); Chloride, Blood 102 mmol/L (98-108); Glomerular Filtration Rate >60 (60-); Glucose, Blood 96 mg/dL (70-99); Potassium, Blood 3.3 mmol/L (3.5-5.5); Sodium, Blood 135 mmol/L (136-145)
[2021-07-19 14:46] LABS: Phosphorus, Blood 3.7 mg/dL (2.5-4.9); Potassium, Blood 3.5 mmol/L (3.5-5.5)
--- NOTE | 2021-07-19 19:23 | NUR ---
Alert and oriented x3 , able to make needs known. Continue on CONTROL CABINET ASSEMBLER dilaudid , it was effective. Independent with ADLS.Zofran 4 IV was given and it was effective. Potassium was 3.3 this morning , 20 meq potassium phosphate iv was given , will continue to monitor potassium in AM. Diet was advanced as tolerated. vital signs are stable. Continue on oxygen monitoring , with sp02 at 94% on RA. Continue on LR infusing at 100 ml/hr . Continue to monitor.
[2021-07-20 05:42] LABS: Albumin, Blood 2.2 g/dL (3.4-5.0); Anion Gap 9 mmol/L (6-16); Blood Urea Nitrogen 10 mg/dL (8-24); Bun/Creatinine Ratio 13.3 (12.0-20.0); CO2, Blood 27 mmol/L (21-32); Calcium, Blood 8.3 mg/dL (8.5-10.1); Chloride, Blood 103 mmol/L (98-108); Creatinine, Blood 0.75 mg/dL (0.40-1.00); Glomerular Filtration Rate >60 (60-); Glucose, Blood 92 mg/dL (70-99); Phosphorus, Blood 3.1 mg/dL (2.5-4.9); Potassium, Blood 2.8 mmol/L (3.5-5.5); Sodium, Blood 139 mmol/L (136-145)
--- NOTE | 2021-07-20 06:41 | NUR ---
SHIFT SUMMARY ADMITTED FOR ACUTE PANCREATITIS. FULL CODE. EXPLOSIVE ORDNANCE DISPOSAL TECHNICIAN PUMP DC'D THIS SHIFT. IV PAIN MEDICATION GIVEN Q2 HRS THROUGHOUT SHIFT. I DID INFORM THE PT THIS WOULD CAUSE CONSTIPATION. BOWEL CARE REGIMEN IS NEEDED, I WILL REQUEST THIS OF DAY SHIFT. LR INFUSING @ 100 ML/HR.
[2021-07-20 15:48] LABS: Albumin, Blood 2.4 g/dL (3.4-5.0); Anion Gap 4 mmol/L (6-16); Blood Urea Nitrogen 10 mg/dL (8-24); Bun/Creatinine Ratio 12.3 (12.0-20.0); CO2, Blood 27 mmol/L (21-32); Calcium, Blood 8.3 mg/dL (8.5-10.1); Chloride, Blood 103 mmol/L (98-108); Creatinine, Blood 0.81 mg/dL (0.40-1.00); Glomerular Filtration Rate >60 (60-); Glucose, Blood 99 mg/dL (70-99); Phosphorus, Blood 2.4 mg/dL (2.5-4.9); Potassium, Blood 3.7 mmol/L (3.5-5.5); Sodium, Blood 134 mmol/L (136-145)
[2021-07-20 19:04] LABS: Source, Urine Clean Catch
[2021-07-20 19:08] LABS: Appearance, Urine Clear (Clear); Bilirubin, Urine Neg (Neg); Blood, Urine 2+ (Neg); Color, Urine Yellow (P-Yellow); Glucose Qualitative, Urine Neg (Neg); Ketones, Urine 1+ (Neg); Leukocyte Esterase, Urine Neg (Neg); Nitrite, Urine Neg (Neg); Protein, Urine 2+ (Neg); Urobilinogen, Urine 1+ (Normal)
[2021-07-20 19:15] LABS: Bacteria Few /hpf; Squamous Epithelial Cells Rare /hpf (Few); White Blood Cells, Urine 0-2 /hpf (0-5)
--- NOTE | 2021-07-20 20:10 | NUR ---
Alert and orientedx 3 , continue on dilaudid iv 2 mg for pain q2hrs , it was effective. ZOFRAN was given for nausea, it was effective. Potassim was low , replacement was orderd and 3 bags were given , will recheck in AM. Doing well with advanced diet as tolerated.
--- NOTE | 2021-07-21 05:35 | NUR ---
PATIENT HAD A FAIR SHIFT. PAIN CONTROL WITH DILAUDID PRN SEE EMAR. WILL CONTINUE TO MONITOR PATIENT.
[2021-07-21 06:04] LABS: Albumin, Blood 2.4 g/dL (3.4-5.0); Anion Gap 9 mmol/L (6-16); Blood Urea Nitrogen 8 mg/dL (8-24); CO2, Blood 24 mmol/L (21-32); Calcium, Blood 8.7 mg/dL (8.5-10.1); Chloride, Blood 101 mmol/L (98-108); Glomerular Filtration Rate >60 (60-); Glucose, Blood 94 mg/dL (70-99); Phosphorus, Blood 2.6 mg/dL (2.5-4.9); Potassium, Blood 3.3 mmol/L (3.5-5.5); Sodium, Blood 134 mmol/L (136-145)
[2021-07-21] MEDS ORDERED: DOCUZEN 8.6-501 EACH PO (12:41)
[2021-07-21] MEDS ORDERED: ONDA4ODT MM (12:42)
[2021-07-21] MEDS ORDERED: Percocet 5-3251 EACH PO (12:42)
[2021-07-21] MEDS ORDERED: DULCOLAX400 MG/5 M PO (12:42)
[2021-07-21] MEDS ORDERED: OMEP20ER PO (12:42)
[2021-07-21] MEDS ORDERED: MAGNESIUM OXID500 MG PO (12:42)
[2021-07-21] MEDS ORDERED: KLOR-CON 1010 ME4 PO (12:43)
--- NOTE | 2021-07-21 14:57 | NUR ---
Alert and oriented x3 , independent in room and ADLS. C/O ABDOMEN PAIN / , Described pain as aching , dilaudid 2 mg iv push was given and it was effective. patient was switched to percocet for pain , it was effective. Continue on potassium replacement therapy, potassium was 3.3 this morning. Patient has stable vital signs . Was discharged home at 1450 and was picked by . Discharged instruction given and understood.
== END 2021-07-21 15:36 | disposition home or self-care (01) | DRG 440 ==
LOC: ER 12:11 → MEDS 15:58
PROVIDERS: Emergency Medicine; Family Medicine; Internal Medicine; ADMIT Internal Medicine
DX: K85.90 Acute pancreatitis without necrosis or infection, unspecified (principal); I25.10 Atherosclerotic heart disease of native coronary artery without angina pectoris; Z20.822 Contact with and (suspected) exposure to COVID-19; I25.5 Ischemic cardiomyopathy; E78.5 Hyperlipidemia, unspecified; E87.6 Hypokalemia; E83.39 Other disorders of phosphorus metabolism; D72.829 Elevated white blood cell count, unspecified; I25.2 Old myocardial infarction; Z95.5 Presence of coronary angioplasty implant and graft; Z87.891 Personal history of nicotine dependence; Z88.2 Allergy status to sulfonamides; Z88.6 Allergy status to analgesic agent; Z88.8 Allergy status to other drugs, medicaments and biological substances; Z79.02 Long term (current) use of antithrombotics/antiplatelets; Z79.82 Long term (current) use of aspirin; Z79.899 Other long term (current) drug therapy
CPT/HCPCS: 36415; 74177; 76705; 80053; 80061; 80069; 81001; 83690; 83735; 84100; 84132; 84484; 85025; 93005; 93010; 94762; 96374-59; 96375; 96376; 99285-25; A9270; J1170; J1650; J2270; J2405; J3480; J7060; J7120; Q9967; U0004

== ENCOUNTER 2021-10-12 05:23 | Inpatient (IN) | payer OTHER ==
[~2021-10-12] VITALS: Ht 165.1 cm; Wt 78.2 kg
[~2021-10-12 05:23] MED LIST changes: -ACET325 PO; -Aspir 8181 MG PO; -CLOP75 PO; -Crestor20 MG PO; +DOCUZEN 8.6-501 EACH PO; +DULCOLAX400 MG/5 M PO; -EZET10 PO; +KLOR-CON 1010 ME4 PO; +MAGNESIUM OXID500 MG PO; +ONDA4ODT MM
[2021-10-12 05:40] LABS: BASOPHILS ABSOLUTE AUTO 0.05 K/mm3 (0.00-0.23); BASOPHILS PERCENT AUTO 0 % (0-2); EOSINOPHILS ABSOLUTE AUTO 0.17 K/mm3 (0.00-0.68); EOSINOPHILS PERCENT AUTO 2 % (0-6); Hematocrit 45.1 % (33.0-51.0); Hemoglobin 15.5 g/dL (11.5-16.0); IMMATURE GRAN ABSOLUTE AUTO 0.05 K/mm3 (0.00-0.10); IMMATURE GRAN PERCENT AUTO 0 % (0-1); LYMPHOCYTES ABSOLUTE AUTO 3.27 K/mm3 (0.84-5.20); LYMPHOCYTES PERCENT AUTO 28 % (21-46); MONOCYTES ABSOLUTE AUTO 0.92 K/mm3 (0.16-1.47); MONOCYTES PERCENT AUTO 8 % (4-13); Mean Corpuscular HGB 31.4 pg (26.0-34.0); Mean Corpuscular HGB Conc 34.4 g/dL (31.5-36.5); Mean Corpuscular Volume 91 fL (80-100); Mean Platelet Volume 9.6 fL (9.1-12.4); NEUTROPHILS ABSOLUTE AUTO 7.26 K/mm3 (1.96-9.15); NEUTROPHILS PERCENT AUTO 62 % (41-73); Platelet Count 307 K/mm3 (150-400); RDW Coefficient Variation 14.3 % (11.7-14.2); RDW Standard Deviation 48.1 fL (35.1-46.3); Red Blood Cell Count 4.94 M/mm3 (3.80-5.20); White Blood Cell Count 11.72 K/mm3 (4.00-11.30)
[2021-10-12 06:15] LABS: Albumin, Blood 3.8 g/dL (3.4-5.0); Albumin/Globulin Ratio 1.1 (0.8-1.8); Bilirubin, Total 0.7 mg/dL (0.1-1.0); Bun/Creatinine Ratio 27.8 (12.0-20.0); Calcium, Blood 9.8 mg/dL (8.5-10.1); Creatinine, Blood 1.44 mg/dL (0.40-1.00); Globulin, Blood 3.4 g/dL (2.2-4.0); Potassium, Blood 4.3 mmol/L (3.5-5.5); Total Protein, Blood 7.2 g/dL (6.4-8.2)
[2021-10-12 12:56] LABS: CHOL/HDL RATIO 5.5; Cholesterol 252 mg/dL (50-200); HDL Cholesterol 46 mg/dL (>39); LDL/HDL RATIO Unable to Calculate; Low Density Lipoprotein Chol Unable to Calculate mg/dL (0-110); Triglycerides 490 mg/dL (30-160); Very Low Density Lipoprot Chol Unable to Calculate mg/dL (6-32)
--- NOTE | 2021-10-12 17:23 | NUR ---
PT OFF FLOOR FOR CT SCAN OF ABDOMEN AT 1715 SUPERVISOR PRECISION OPTICAL ELEMENTS AND IV PLACED ON PAUSE AND DISCONECTED FROM PT UNTIL RETURN AT REQUEST OF IMAGINING.
--- NOTE | 2021-10-12 18:36 | NUR ---
DAY SHIFT SUMMARY PT ARRIVED BACK TO ROOM POST CT AROUND 1800. PT TRANSFERED FROM ER TO MED FLOOR. ARRIVED WITH SEVERE PAIN TO ABDOMEN NOT RELEAVED WITH PAIN MEDICATION. PT CURRENTLY ON WELDER OXYHYDROGEN DILAUDID PUMP AT THIS TIME. DR ELLIOTT HAS BEEN CONSULTED SEVERAL TIMES ON PT REPORT OF 10/10 PAIN WITHOUT RELIEF FROM WELDER OXYHYDROGEN. PT COMPLAINT OF CHEST PAIN WHEN RETURNING FROM CT. DR ELLIOTT CONSULTED. NITRO GIVEN WITH EKG AND LABS DRAWN. RESULTS OF EKG REPORTED TO DR ELLIOTT. CALL LIGHT WITHIN REACH OF PT. ORIENTED TO ROOM AND CALL LIGHT. INDEPENDENT IN ROOM. ABLE TO TAKE SELF TO BATHROOM.
--- NOTE | 2021-10-12 18:51 | NUR ---
CHEST PAIN IS BETTER, REPORTS PT, SLIGHT HEADACHE. HOWEVER ABDOMINAL PAIN IS SEVERE AND PT STATES SHE IS MISERABLE. RELAYING ALL CONTACTS WITH MDS AND PT TO DEMOLITION WORKER COMING ON FOR REPORT.
--- NOTE | 2021-10-13 04:08 | NUR ---
SHIFT SUMMARY 56 YR F ADMITTED ON 10/11/21 FOR ACUTE ON CHRONIC PANCREATITIS. PT WAS IN EXTREME PAIN WHEN SHE GOT TO MED FLOOR. SHE WAS ON A STEEL PAN FORM PLACING SUPERVISOR PUMP W/ DILAUDID, BUT IT WAS NOT ADEQUETLY CONTROLLING HER PAIN. HOSPITALIST WAS CONTACTED AND HOURLY DILAUDID WAS GIVEN IN PLACE OF THE STEEL PAN FORM PLACING SUPERVISOR. PT STATED THAT SHE WAS MORE COMFORTABLE AFTER A COUPLE OF HOURS. PT IS VERY ANXIOUS AND DID NOT SLEEP WELL THROUGHOUT THE NIGHT.
[2021-10-13 05:38] LABS: Hematocrit 42.8 % (33.0-51.0); Hemoglobin 14.9 g/dL (11.5-16.0); Mean Corpuscular HGB 31.4 pg (26.0-34.0); Mean Corpuscular HGB Conc 34.8 g/dL (31.5-36.5); Mean Corpuscular Volume 90 fL (80-100); Mean Platelet Volume 10.1 fL (9.1-12.4); Platelet Count 277 K/mm3 (150-400); RDW Standard Deviation 46.8 fL (35.1-46.3); Red Blood Cell Count 4.75 M/mm3 (3.80-5.20); White Blood Cell Count 10.38 K/mm3 (4.00-11.30)
--- NOTE | 2021-10-13 05:51 | NUR ---
SHIFT SUMMARY 89 YR f ADMITTED ON 10/08/21 FOR CKI AND MALNUTRITION. FULL CODE. PT IS EATING VERY LITTLE AND IS SLEEPING ALL SHIFT. SHE WILL WAKE TO TAKE HER MEDS, BUT BARELY OPENS HER EYES TO DO SO. SHE IS CONFUSED AND TRIES TO GET OUT OF BED ON HER OWN TO USE THE BEDSIDE COMMODE. BED ALARM IS KEPT ON PT IS TOO WEAK TO AMBULATE ON HER OWN. THERE ARE NO SIGNIFIANT CHANGES THIS SHIFT BUT STOOL SAMPLE WAS SENT TO LAB AND NO RESULTS YET.
[2021-10-13 07:01] LABS: Alanine Aminotransfer (ALT/SGP 28 U/L (12-78); Albumin, Blood 3.2 g/dL (3.4-5.0); Alk Phos 136 U/L (50-136); Anion Gap 10 mmol/L (6-16); Aspartate Aminotrans (AST/SGOT 29 U/L (12-37); Bilirubin, Total 0.8 mg/dL (0.1-1.0); Blood Urea Nitrogen 26 mg/dL (8-24); Bun/Creatinine Ratio 29.1 (12.0-20.0); CO2, Blood 21 mmol/L (21-32); Calcium, Blood 9.2 mg/dL (8.5-10.1); Chloride, Blood 104 mmol/L (98-108); Globulin, Blood 3.1 g/dL (2.2-4.0); Glomerular Filtration Rate >60 (60-); Glucose, Blood 102 mg/dL (70-99); Potassium, Blood 5.3 mmol/L (3.5-5.5); Sodium, Blood 135 mmol/L (136-145); Total Protein, Blood 6.3 g/dL (6.4-8.2)
--- NOTE | 2021-10-13 18:22 | NUR ---
SHIFT SUMMARY: C/O 06/24 PAIN IN UPPER ABDOMEN, TTP; MEDICATED WITH DILAUDID IV PER EMAR, REGIMEN CHANGED LATE TODAY. PT QUITE ANXIOUS THAT PAIN WILL NOT BE ADEQUATELY CONTROLLED O/N. ALSO HAVING INTERMITTENT NAUSEA THAT REGLAN WAS NOT HELPING; CHANGED TO ZOFRAN WITH GOOD RELIEF. INDEPENDENT IN ROOM. IS NOT ABLE TO REST D/T PAIN. LBM 10/11, IS PASSING GAS. EDUCATED PT ABOUT SIDE EFFECTS OF NARCOTICS (CONSTIPATION, RESP DEPRESSION) AND SHE VERBALIZED UNDERSTANDING. TOOK PO MEDS THIS MORNING, BUT STATED THAT HER ABD HURT MOST OF THE DAY AFTER TAKING THEM.
[2021-10-14 05:11] LABS: BASOPHILS ABSOLUTE AUTO 0.03 K/mm3 (0.00-0.23); BASOPHILS PERCENT AUTO 0 % (0-2); EOSINOPHILS ABSOLUTE AUTO 0.07 K/mm3 (0.00-0.68); EOSINOPHILS PERCENT AUTO 1 % (0-6); Hematocrit 34.9 % (33.0-51.0); Hemoglobin 12.1 g/dL (11.5-16.0); IMMATURE GRAN ABSOLUTE AUTO 0.04 K/mm3 (0.00-0.10); IMMATURE GRAN PERCENT AUTO 0 % (0-1); LYMPHOCYTES ABSOLUTE AUTO 1.54 K/mm3 (0.84-5.20); LYMPHOCYTES PERCENT AUTO 16 % (21-46); MONOCYTES ABSOLUTE AUTO 0.74 K/mm3 (0.16-1.47); MONOCYTES PERCENT AUTO 8 % (4-13); Mean Corpuscular HGB 31.1 pg (26.0-34.0); Mean Corpuscular HGB Conc 34.7 g/dL (31.5-36.5); Mean Corpuscular Volume 90 fL (80-100); Mean Platelet Volume 10.3 fL (9.1-12.4); NEUTROPHILS ABSOLUTE AUTO 7.46 K/mm3 (1.96-9.15); NEUTROPHILS PERCENT AUTO 76 % (41-73); Platelet Count 207 K/mm3 (150-400); RDW Coefficient Variation 14.3 % (11.7-14.2); RDW Standard Deviation 47.1 fL (35.1-46.3); Red Blood Cell Count 3.89 M/mm3 (3.80-5.20); White Blood Cell Count 9.88 K/mm3 (4.00-11.30)
--- NOTE | 2021-10-14 05:59 | NUR ---
SUMMARY PT CONTINUES TO HAVE EPISODES OF N/V DURING SHIFT. PT RESPONDS WELL TO ZOFRAN. PT REPORTS ABD PAIN AND IS RESPONDING WELL TO THE DILAUDID. PT UNABLE TO TOLERATE THE PO PAIN MED. PT HAS BEEN ABLE TO SLEEP THIS SHIFT. PT CURRENTLY SLEEPING AND IN NO DISTRESS. CALL LIGHT IN REACH.
[2021-10-14 06:21] LABS: Alanine Aminotransfer (ALT/SGP 18 U/L (12-78); Albumin, Blood 2.6 g/dL (3.4-5.0); Albumin/Globulin Ratio 0.9 (0.8-1.8); Alk Phos 140 U/L (50-136); Anion Gap 7 mmol/L (6-16); Aspartate Aminotrans (AST/SGOT 18 U/L (12-37); Bilirubin, Total 1.1 mg/dL (0.1-1.0); Blood Urea Nitrogen 13 mg/dL (8-24); Bun/Creatinine Ratio 18.6 (12.0-20.0); CO2, Blood 25 mmol/L (21-32); Calcium, Blood 8.8 mg/dL (8.5-10.1); Chloride, Blood 105 mmol/L (98-108); Globulin, Blood 2.8 g/dL (2.2-4.0); Glomerular Filtration Rate >60 (60-); Glucose, Blood 82 mg/dL (70-99); Magnesium, Blood 1.2 mg/dL (1.6-2.4); Phosphorus, Blood 2.9 mg/dL (2.5-4.9); Potassium, Blood 3.9 mmol/L (3.5-5.5); Sodium, Blood 137 mmol/L (136-145); Total Protein, Blood 5.4 g/dL (6.4-8.2)
--- NOTE | 2021-10-14 18:02 | NUR ---
SHIFT SUMMARY: NO ACUTE EVENTS. C/O 6-06/24 ABD PAIN AND "SPASMS"; MEDICATED PER EMAR WITH GOOD RELIEF. WAS ABLE TO TOLERATE HOT TEA SO DIET ADVANCED TO CLEAR LIQ. EXPLAINED THAT PAIN MEDICATION REGIMEN WOULD LIKELY BE CHANGED TOMORROW; I FEAR THAT SHE IS WATCHING THE CLOCK INSTEAD OF REQUESTING PAIN MEDICATION WHEN SHE ACTUALLY NEEDS IT. MAGNESIUM REPLACED. ZOFRAN 8 MG RELIEVED NAUSEA FOR SEVERAL HOURS. HAD LOOSE BM THIS AFTERNOON.
[2021-10-14] MEDS ORDERED: OXYC10TA19 PO (19:24)
[2021-10-14] MEDS ORDERED: TIZANIDINE HCL PO (19:24)
[2021-10-14] MEDS ORDERED: OMEP20ER PO (19:24)
[2021-10-14] MEDS ORDERED: Amlodipine Bes2.5 MG PO (19:25)
[2021-10-14] MEDS ORDERED: NEBI5 PO (19:26)
[2021-10-14] MEDS ORDERED: CLOP75 PO (19:27)
[2021-10-14] MEDS ORDERED: Crestor20 MG PO (19:27)
[2021-10-14] MEDS ORDERED: Aspir 8181 MG PO (19:28)
[2021-10-14] MEDS ORDERED: EZET10 PO (19:36)
[2021-10-14] MEDS ORDERED: ACET325 PO (19:37)
--- NOTE | 2021-10-15 05:01 | NUR ---
SHIFT SUMMARY PT IS A 56 Y/O FEMALE, ADMITTED FOR ACUTE ON CHRONIC PANCREATITIS. SHE IS A&O X 4, INDEPENDENT IN THE ROOM. PT REPORTED UPPER ABD AND L SHOULDER PAIN DURING THE NIGHT, AND WAS MEDICATED Q2H WITH PRN DILAUDID. PT ALSO REPORTED MILD NAUSEA, WITH NO EMESIS, AND WAS MEDICATED TWICE WITH PRN ZOFRAN. PT ABLE TO TOLERATE SMALL AMOUNTS OF CLEAR LIQUIDS. NO C/O SOB. VITAL SIGNS STABLE. PT RECEIVING LR @ 150 ML/HR. NO OTHER ACUTE CHANGES IN PT CONDITION NOTED DURING THE NIGHT. WILL CONTINUE TO MONITOR AND TREAT PER EMAR UNTIL HAND OFF TO DAY SHIFT RN.
[2021-10-15 06:46] LABS: Albumin, Blood 2.4 g/dL (3.4-5.0); Anion Gap 8 mmol/L (6-16); Blood Urea Nitrogen 8 mg/dL (8-24); Bun/Creatinine Ratio 12.3 (12.0-20.0); CO2, Blood 26 mmol/L (21-32); Calcium, Blood 8.8 mg/dL (8.5-10.1); Chloride, Blood 104 mmol/L (98-108); Creatinine, Blood 0.65 mg/dL (0.40-1.00); Glomerular Filtration Rate >60 (60-); Glucose, Blood 98 mg/dL (70-99); Magnesium, Blood 1.5 mg/dL (1.6-2.4); Phosphorus, Blood 2.7 mg/dL (2.5-4.9); Potassium, Blood 3.4 mmol/L (3.5-5.5); Sodium, Blood 138 mmol/L (136-145)
--- NOTE | 2021-10-15 17:02 | NUR ---
PT AOX4 AND COOPERATIVE OF CARE. PT CONTINUES TO HAVE ABD PAIN WITH NAUSEA AND IS TREATED PER EMAR. PT DID MANAGE TO TAKE ORAL PAIN MEDICATION, BUT STILL IS NEEDING IV PAIN MED FOR HER PAIN. PT INDEPENDENT IN ROOM. CALL LIGHT WITHIN REACH WILL CONTINUE TO MONITOR.
--- NOTE | 2021-10-16 03:51 | NUR ---
SHIFT SUMMARY NO ACUTE CHANGES TO PT CONDITION DURING THIS SHIFT. PT CONTINUES TO HAVE ABDOMEN AND CLAVICLE PAIN. ALSO, PT HAS OCCASIONAL NAUSEA, BUT WAS ABLE TO DRINK SOME BROTH AND KEEP IT DOWN. PT MEDICATED FOR PAIN EVERY 2 HOURS AND ZOFRAN EVERY 6 HOURS PER EMAR. PT INDEPENDENT IN ROOM. CALL LIGHT WITHIN REACH AND WILL CONTINUE TO MONITOR.
[2021-10-16 05:20] LABS: Hematocrit 31.3 % (33.0-51.0); Hemoglobin 10.9 g/dL (11.5-16.0); Mean Corpuscular HGB 31.3 pg (26.0-34.0); Mean Corpuscular HGB Conc 34.8 g/dL (31.5-36.5); Mean Corpuscular Volume 90 fL (80-100); Mean Platelet Volume 10.5 fL (9.1-12.4); Platelet Count 208 K/mm3 (150-400); RDW Coefficient Variation 14.4 % (11.7-14.2); RDW Standard Deviation 47.6 fL (35.1-46.3); Red Blood Cell Count 3.48 M/mm3 (3.80-5.20); White Blood Cell Count 6.64 K/mm3 (4.00-11.30)
[2021-10-16 06:27] LABS: Albumin, Blood 2.2 g/dL (3.4-5.0); Anion Gap 9 mmol/L (6-16); Blood Urea Nitrogen 6 mg/dL (8-24); CO2, Blood 24 mmol/L (21-32); Calcium, Blood 8.7 mg/dL (8.5-10.1); Chloride, Blood 105 mmol/L (98-108); Creatinine, Blood 0.66 mg/dL (0.40-1.00); Glomerular Filtration Rate >60 (60-); Glucose, Blood 91 mg/dL (70-99); Magnesium, Blood 1.7 mg/dL (1.6-2.4); Phosphorus, Blood 3.4 mg/dL (2.5-4.9); Potassium, Blood 3.5 mmol/L (3.5-5.5); Sodium, Blood 138 mmol/L (136-145)
[2021-10-16] MEDS ORDERED: DULCOLAX400 MG/5 M PO (14:27)
[2021-10-16] MEDS ORDERED: METO5A PO (14:27)
[2021-10-16] MEDS ORDERED: NARCAN4 M1 (14:29)
[2021-10-16] MEDS ORDERED: Ondansetron Odt8 MG MM (14:29)
--- NOTE | 2021-10-16 15:11 | NUR ---
DISCHARGE NOTE PT WAS DISCHARGED HOME WITH . DISCHARGE INSTRUCTIONS GONE OVER AND HARD SCRIP IN DISCHARGE PACKET.
== END 2021-10-16 15:07 | disposition home or self-care (01) | DRG 439 ==
LOC: ER 05:23 → MEDS 08:12
PROVIDERS: Family Medicine; Internal Medicine; Student in an Organized Health Care Education/Training Program; ADMIT Internal Medicine
DX: K85.90 Acute pancreatitis without necrosis or infection, unspecified (principal); N17.9 Acute kidney failure, unspecified; K86.1 Other chronic pancreatitis; E86.0 Dehydration; E87.8 Other disorders of electrolyte and fluid balance, not elsewhere classified; K21.9 Gastro-esophageal reflux disease without esophagitis; I10 Essential (primary) hypertension; I25.10 Atherosclerotic heart disease of native coronary artery without angina pectoris; E78.5 Hyperlipidemia, unspecified; I25.2 Old myocardial infarction; Z88.5 Allergy status to narcotic agent; Z88.6 Allergy status to analgesic agent; Z88.2 Allergy status to sulfonamides; Z88.8 Allergy status to other drugs, medicaments and biological substances; Z79.02 Long term (current) use of antithrombotics/antiplatelets; Z79.899 Other long term (current) drug therapy; Z79.82 Long term (current) use of aspirin; Z95.5 Presence of coronary angioplasty implant and graft; Z98.890 Other specified postprocedural states
CPT/HCPCS: 36415; 74177; 76705; 80053; 80061; 80069; 83690; 83735; 84100; 84484; 85025; 85027; 93005; 93010; 96374; 96375; 96376; 99285-25; A9270; C9113; J1170; J1644; J2270; J2405; J2765; J3010; J3475; J7030; J7120; Q9967

== ENCOUNTER 2022-04-16 13:28 | Inpatient (IN) | payer BC ==
[~2022-04-16] VITALS: Ht 165.1 cm; Wt 70.3 kg
[~2022-04-16 13:28] MED LIST changes: +ACET325 PO; +Amlodipine Bes2.5 MG PO; +Aspir 8181 MG PO; +CLOP75 PO; +Crestor20 MG PO; +EZET10 PO; +METO5A PO; +NARCAN4 M1; +OMEP20ER PO; +Ondansetron Odt8 MG MM; +TIZANIDINE HCL PO
[2022-04-16 15:34] LABS: BASOPHILS ABSOLUTE AUTO 0.07 K/mm3 (0.00-0.23); BASOPHILS PERCENT AUTO 1 % (0-2); EOSINOPHILS ABSOLUTE AUTO 0.18 K/mm3 (0.00-0.68); EOSINOPHILS PERCENT AUTO 2 % (0-6); Hematocrit 37.1 % (33.0-51.0); Hemoglobin 12.9 g/dL (11.5-16.0); IMMATURE GRAN ABSOLUTE AUTO 0.04 K/mm3 (0.00-0.10); IMMATURE GRAN PERCENT AUTO 0 % (0-1); LYMPHOCYTES ABSOLUTE AUTO 2.08 K/mm3 (0.84-5.20); LYMPHOCYTES PERCENT AUTO 19 % (21-46); MONOCYTES ABSOLUTE AUTO 0.74 K/mm3 (0.16-1.47); MONOCYTES PERCENT AUTO 7 % (4-13); Mean Corpuscular HGB 31.1 pg (26.0-34.0); Mean Corpuscular HGB Conc 34.8 g/dL (31.5-36.5); Mean Corpuscular Volume 89 fL (80-100); Mean Platelet Volume 10.1 fL (9.1-12.4); NEUTROPHILS ABSOLUTE AUTO 7.72 K/mm3 (1.96-9.15); NEUTROPHILS PERCENT AUTO 71 % (41-73); Platelet Count 304 K/mm3 (150-400); RDW Coefficient Variation 12.1 % (11.7-14.2); RDW Standard Deviation 39.5 fL (35.1-46.3); Red Blood Cell Count 4.15 M/mm3 (3.80-5.20); White Blood Cell Count 10.83 K/mm3 (4.00-11.30)
[2022-04-16 15:57] LABS: Albumin, Blood 3.4 g/dL (3.4-5.0); Albumin/Globulin Ratio 1.2 (0.8-1.8); Bilirubin, Total 0.3 mg/dL (0.1-1.0); Bun/Creatinine Ratio 20.4 (12.0-20.0); Calcium, Blood 8.4 mg/dL (8.5-10.1); Creatinine, Blood 1.52 mg/dL (0.40-1.00); Globulin, Blood 2.8 g/dL (2.2-4.0); Potassium, Blood 4.1 mmol/L (3.5-5.5); Total Protein, Blood 6.2 g/dL (6.4-8.2)
[2022-04-16 19:08] LABS: Source, Urine Clean Catch
[2022-04-16 19:17] LABS: Appearance, Urine Clear (Clear); Bilirubin, Urine Neg (Neg); Blood, Urine 1+ (Neg); Color, Urine Yellow (P-Yellow); Glucose Qualitative, Urine Neg (Neg); Ketones, Urine Neg (Neg); Leukocyte Esterase, Urine Neg (Neg); Nitrite, Urine Neg (Neg); Protein, Urine 1+ (Neg); Specific Gravity, Urine 1.015 (1.003-1.022); Urobilinogen, Urine NORM (Normal)
[2022-04-16 19:22] LABS: CHOL/HDL RATIO 5.2; Cholesterol 317 mg/dL (50-200); HDL Cholesterol 61 mg/dL (>39); LDL/HDL RATIO Unable to Calculate; Low Density Lipoprotein Chol Unable to Calculate mg/dL (0-110); Triglycerides 470 mg/dL (30-160); Very Low Density Lipoprot Chol Unable to Calculate mg/dL (6-32)
[2022-04-16 19:23] LABS: Bacteria Few /hpf; Squamous Epithelial Cells Mod /hpf (Few)
[2022-04-16] MEDS ORDERED: FAMO20 PO (21:48)
[2022-04-16] MEDS ORDERED: LOSA50 PO (21:49)
--- NOTE | 2022-04-17 04:43 | NUR ---
SHIFT SUMMARY PT NEW ED ADMIT THIS EVENING. ACUTE PANCREATITIS. ABD PAIN TO UPPER QUADRANTS. 8-10/10 UNMEDICATED. PT NEEDING IV PAIN MEDICATION APPROX EVERY TWO HOURS TO MANAGE. PT ALSO REPORTING NAUSEA OFF AND ON. ALTERNATING ZOFRAN AND REGLAN. NO EPISODES OF EMESIS. OTHERWISE NO ACUTE CHANGES. VITAL SIGNS STABLE. PT ALERT AND PLEASANT AND AMBULATING INDEPENDENTLY IN THE ROOM.
[2022-04-17 06:15] LABS: BASOPHILS ABSOLUTE AUTO 0.04 K/mm3 (0.00-0.23); BASOPHILS PERCENT AUTO 1 % (0-2); EOSINOPHILS PERCENT AUTO 1 % (0-6); Hematocrit 38.2 % (33.0-51.0); IMMATURE GRAN ABSOLUTE AUTO 0.04 K/mm3 (0.00-0.10); IMMATURE GRAN PERCENT AUTO 1 % (0-1); LYMPHOCYTES ABSOLUTE AUTO 1.11 K/mm3 (0.84-5.20); LYMPHOCYTES PERCENT AUTO 14 % (21-46); MONOCYTES ABSOLUTE AUTO 0.43 K/mm3 (0.16-1.47); MONOCYTES PERCENT AUTO 5 % (4-13); Mean Corpuscular HGB 30.7 pg (26.0-34.0); Mean Corpuscular Volume 90 fL (80-100); Mean Platelet Volume 10.4 fL (9.1-12.4); NEUTROPHILS ABSOLUTE AUTO 6.18 K/mm3 (1.96-9.15); NEUTROPHILS PERCENT AUTO 78 % (41-73); Platelet Count 269 K/mm3 (150-400); RDW Coefficient Variation 12.1 % (11.7-14.2); RDW Standard Deviation 39.8 fL (35.1-46.3); Red Blood Cell Count 4.24 M/mm3 (3.80-5.20)
[2022-04-17 06:32] LABS: Albumin, Blood 3.3 g/dL (3.4-5.0); Albumin/Globulin Ratio 1.1 (0.8-1.8); Bilirubin, Total 0.7 mg/dL (0.1-1.0); Bun/Creatinine Ratio 24.9 (12.0-20.0); Calcium, Blood 8.6 mg/dL (8.5-10.1); Creatinine, Blood 0.92 mg/dL (0.40-1.00); Potassium, Blood 3.7 mmol/L (3.5-5.5); Total Protein, Blood 6.3 g/dL (6.4-8.2)
--- NOTE | 2022-04-17 10:24 | NUR ---
PATIENT TRANSFERRED TO 305. REPORT GIVEN TO RECEIVING RN LOLIS. PATIENT A&OX4. PATIENT C/O ABD PAIN AND NAUSEA, MEDICATED X2 PER MAR. PATIENT INDEPENDENT IN ROOM, AMBULATING TO RESTROOM. RECEIVING IV FLUIDS. NPO THIS AM BUT PLAN TO ADVANCE TO CLEAR LIQUID DIET TOLERATED.
--- NOTE | 2022-04-17 19:31 | NUR ---
END OF SHIFT SUMMARY: PATIENT TRANSFERRED TO ROOM 305 MID MORNING. BEDSIDE REPORT RECEIVED. PATIENT REPORTED "EXCRUCIATING PAIN". PATIENT REPORTED NAUSEA WELL. ONE TIME BREAKTHROUGH DOSE OF DILAUDID HELPED PATIENT GET ON TOP OF HER PAIN. PATIENT REPORTED ABDOMINAL PAIN AT 6-7/10 FOR THE REST OF THE SHIFT. PATIENT REPORTED LOW LEVELS OF NAUSEA, BUT TOLERATED CLEAR LIQUIDS WITHOUT INCREASE IN NAUSEA OR INCREASE IN ABDOMINAL PAIN. PATIENT REPORTED THAT THE K-PAD ALSO GREATLY HELPED HER PAIN. PATIENT INDEPENDENT IN THE ROOM WITHOUT DIZZINESS OR UNSTEADINESS.
[2022-04-18 05:35] LABS: BASOPHILS ABSOLUTE AUTO 0.05 K/mm3 (0.00-0.23); BASOPHILS PERCENT AUTO 1 % (0-2); EOSINOPHILS ABSOLUTE AUTO 0.29 K/mm3 (0.00-0.68); EOSINOPHILS PERCENT AUTO 4 % (0-6); Hematocrit 36.5 % (33.0-51.0); Hemoglobin 11.9 g/dL (11.5-16.0); IMMATURE GRAN ABSOLUTE AUTO 0.03 K/mm3 (0.00-0.10); IMMATURE GRAN PERCENT AUTO 0 % (0-1); LYMPHOCYTES ABSOLUTE AUTO 1.58 K/mm3 (0.84-5.20); LYMPHOCYTES PERCENT AUTO 22 % (21-46); MONOCYTES ABSOLUTE AUTO 0.57 K/mm3 (0.16-1.47); MONOCYTES PERCENT AUTO 8 % (4-13); Mean Corpuscular HGB 30.5 pg (26.0-34.0); Mean Corpuscular HGB Conc 32.6 g/dL (31.5-36.5); Mean Corpuscular Volume 94 fL (80-100); Mean Platelet Volume 10.1 fL (9.1-12.4); NEUTROPHILS ABSOLUTE AUTO 4.54 K/mm3 (1.96-9.15); NEUTROPHILS PERCENT AUTO 64 % (41-73); Platelet Count 225 K/mm3 (150-400); RDW Coefficient Variation 12.3 % (11.7-14.2); RDW Standard Deviation 42.5 fL (35.1-46.3); White Blood Cell Count 7.06 K/mm3 (4.00-11.30)
--- NOTE | 2022-04-18 05:40 | NUR ---
SUPERINTENDENT SYSTEM OPERATION SUMMARY ADMITTED FOR ACUTE PANCREATITIS. THE PATIENT IS A FULL CODE. SHE IS ALERT AND ORIENTED AND INDEPENDENT IN THE ROOM. THERE IS SOME TENDERNESS TO THE RIGHT UPPER QUADRANT/MID ABDOMEN REGION. PAIN MEDICATION REQUESTED Q2; PT SMILING FREQUENTLY BUT REPORTS A 10/10 PAIN. SHE REPORTS FEELING CONTINUALLY NAUSEOUS AND REQUESTS ZOFRAN AND REGLAN IMMEDIATELY WHEN CAN BE GIVEN. THE PATIENT IS ON A CLEAR DIET AND REPORTS NEW DIARRHEA. SHE IS ON RA. NO TELE.
[2022-04-18 06:05] LABS: Albumin, Blood 2.9 g/dL (3.4-5.0); Albumin/Globulin Ratio 0.9 (0.8-1.8); Bilirubin, Total 0.7 mg/dL (0.1-1.0); Bun/Creatinine Ratio 12.8 (12.0-20.0); Calcium, Blood 8.7 mg/dL (8.5-10.1); Creatinine, Blood 0.7 mg/dL (0.40-1.00); Globulin, Blood 3.1 g/dL (2.2-4.0); Potassium, Blood 3.8 mmol/L (3.5-5.5)
--- NOTE | 2022-04-18 14:13 | NUR ---
ISSUE OF PAIN MD ORDER CHANGED PAIN MED FROM IV TO PO. PT C/O PAIN, GAVE THE PO PAIN MED ORDERED BY MD. WITHIN 5 MINS TIME PT CALLED RN INTO HER ROOM. PT STATES SHE VOMITED THE PO PAIN MEDS AND THAT SHE SAVED THE EMESIS IN THE BATHROOM. UPON VISUALIZATION OF THE EMESIS WHICH WAS SCANT, CLEAR & FROTHY, NO EVEIDENCE OF THE PO PAIN MEDS WERE SEEN IN THE EMESIS. SHE IS TEARY EYED & VISIBLY UPSET. STATING SHE WANTS TO PEAK WITH THE MD. RN CALLED MD AND MADE AWARE OF THE ABOVE.
--- NOTE | 2022-04-18 15:21 | NUR ---
CALL TO PT REQUESTED RN PLACE ANOTHER CALL TO MD REGARDING PAIN MEDICINE & TO ASK MD TO COME SPEAK WITH HER. PLACED CALL TO DR. Monica CABRERA. STATES SHE WILL TRY TO COME UP BEFORE SHE LEAVES TODAY AT 5PM. PT'S NEXT PO PAIN MED IS DUE AT 1715. IV DILAUDID WAS DC'D. PT IS SITTING UP IN CHAIR AT BEDSIDE WITH K-PAD ON ABD WATCHING TV.
--- NOTE | 2022-04-18 18:39 | NUR ---
SHIFT SUMMARY PT A&O X 4. PT MEDICATED FOR PAIN & NAUSEA THROUGHOUT SHIFT. (SEE EMAR). MD RE-STARTED DILAUDID IV. PT STATES SHE HAS BETTER PAIN CONTROL WITH THE DILAUDID. SHE WAS ABLE TO EAT APPROX 30% OF HER DINNER TONIGHT.
[2022-04-19 05:16] LABS: Hematocrit 30.4 % (33.0-51.0); Hemoglobin 10.7 g/dL (11.5-16.0)
--- NOTE | 2022-04-19 06:42 | NUR ---
SHIFT SUMMARY Assumed care of pt at 1900. A/Ox4. Independent in room. Patient reports 8-9/10 pain every 2 hours on the dot when PRN's are due. Patient reports nausea, no vomiting. Was able to eat takeout that she had delivered. Kpad in place. VSS. Hypoactive bowel tones in all quadrants. LR running per emar. Patient reported CP, EKG order obtained. 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 VSS. Will report to dayshift RN.
--- NOTE | 2022-04-19 15:06 | NUR ---
RN NOTE MS GALINDO IS ALERT, ORIENTATED X4. MAIN C/O UPPER ABDOMINAL PAIN WHICH SHGE SAID FEELS IMPROVED TODAY COMPARED TO LAST NIGHT. DILAUDID 0.5MG IV EFFECTIVE PAIN RELIEF. MEDICATED ONCE SO FAR FOR NAUSEA. SHE TOLERATED CHICKEN BROTH AND CRACKERS FOR LUNCH. IVF CONTINUE AT 200CC/HR. UP TO BATHROOM INDEPENDENTLY AND SHE TOOK A SHOWER TODAY. BED LOW, CALL LIGHT IN REACH.
--- NOTE | 2022-04-19 18:14 | NUR ---
SHIFT SUMMARY MS GALINDO SAID THAT HER ABDOMINAL PAIN IS DOWN TO A 4/10 NOW, AND THAT THIS IS THE BEST IT HAS BEEN FOR HER. SHE ATE 1/2 SERVING OF CREAM OF WHEAT AND ALL THE TOMATO SOUP FOR SUPPER. SHE SAID THAT SHE WILL TAKE ORAL ANALGESIA WHEN SHE NEXT NEEDS IT AND SEE IF SHE CAN AVOID TAKING THE IV DILAUDID TONIGHT. IVF CONTINUE. NEW PIV PLACED.
[2022-04-20 04:58] LABS: Hematocrit 30.2 % (33.0-51.0); Hemoglobin 10.4 g/dL (11.5-16.0)
--- NOTE | 2022-04-20 05:19 | NUR ---
SHIFT SUMMARY: PATIENT REPORTS WANTING TO TRY ORAL MEDICATIONS FOR PAIN CONTROL. "I COULD BE GOING HOME TOMORROW, LETS SEE IF THE PILLS HELP THE PAIN." PATIENT CONTINUES TO REPORT A LOW LEVEL LINGERING NAUSEA. ZOFRAN AND REGLAN PRN ARE EFFECTIVE FOR NAUSEA CONTOL. SOME TRACE EDEMA IS OBSERVED IN BILAT HANDS AND FEET. LR IS INFUSING AT 200ML/HR AND NO ORAL PAIN MEDICATIONS ARE ODERED. DR ZABALA IS NOTIFIED AND ORDERS TO DC IVF AND DILAUDID AND START OXYCODONE 10MG Q 4H ORDERS. TOLERATING CLEAR LIQUIDS AND CRACKERS, NO VOMITING. SMALL AMT. OF DIARRHIA WITH EACH URINATION PER PATIENT REPORT.
[2022-04-20] MEDS ORDERED: OXYC10TA19 PO (11:46)
--- NOTE | 2022-04-20 12:59 | NUR ---
DISCHARGE INSTRUCTIONS COMPLETED AND DISCUSSED WITH PT EXPRESSING UNDERSTANDING. AMBULATED TO CURB WITH SPOUSE.
== END 2022-04-20 12:31 | disposition home or self-care (01) | DRG 439 ==
LOC: ER 13:28 → MEDS 20:59
PROVIDERS: Family Medicine; Physician Assistant; ADMIT Internal Medicine
DX: K85.90 Acute pancreatitis without necrosis or infection, unspecified (principal); E87.1 Hypo-osmolality and hyponatremia; N17.9 Acute kidney failure, unspecified; I10 Essential (primary) hypertension; R11.2 Nausea with vomiting, unspecified; K86.1 Other chronic pancreatitis; K21.9 Gastro-esophageal reflux disease without esophagitis; I25.10 Atherosclerotic heart disease of native coronary artery without angina pectoris; E86.0 Dehydration; E78.5 Hyperlipidemia, unspecified; I25.2 Old myocardial infarction; Z87.891 Personal history of nicotine dependence; Z95.5 Presence of coronary angioplasty implant and graft; Z88.2 Allergy status to sulfonamides; Z88.8 Allergy status to other drugs, medicaments and biological substances; Z79.82 Long term (current) use of aspirin; Z79.899 Other long term (current) drug therapy
CPT/HCPCS: 36415; 76705; 80053; 80061; 81001; 83690; 85014; 85018; 85025; 93005; 93010; 96361; 96374; 96375; 96376; 99285-25; A9270; J1170; J1644; J2405; J2765; J7030; J7120

== ENCOUNTER → 2022-04-22 | Outpatient (CLI) | payer BC ==
[~2022-04-22] MED LIST changes: +FAMO20 PO
[2022-04-22 15:30] LABS: BASOPHILS ABSOLUTE AUTO 0.07 K/mm3 (0.00-0.23); BASOPHILS PERCENT AUTO 1 % (0-2); EOSINOPHILS ABSOLUTE AUTO 0.18 K/mm3 (0.00-0.68); EOSINOPHILS PERCENT AUTO 3 % (0-6); Hematocrit 35.2 % (33.0-51.0); Hemoglobin 12.3 g/dL (11.5-16.0); IMMATURE GRAN ABSOLUTE AUTO 0.03 K/mm3 (0.00-0.10); IMMATURE GRAN PERCENT AUTO 0 % (0-1); LYMPHOCYTES ABSOLUTE AUTO 1.83 K/mm3 (0.84-5.20); LYMPHOCYTES PERCENT AUTO 26 % (21-46); MONOCYTES ABSOLUTE AUTO 0.64 K/mm3 (0.16-1.47); MONOCYTES PERCENT AUTO 9 % (4-13); Mean Corpuscular HGB 31.6 pg (26.0-34.0); Mean Corpuscular HGB Conc 34.9 g/dL (31.5-36.5); Mean Corpuscular Volume 91 fL (80-100); Mean Platelet Volume 9.8 fL (9.1-12.4); NEUTROPHILS ABSOLUTE AUTO 4.17 K/mm3 (1.96-9.15); NEUTROPHILS PERCENT AUTO 60 % (41-73); Platelet Count 347 K/mm3 (150-400); RDW Coefficient Variation 12.7 % (11.7-14.2); RDW Standard Deviation 41.6 fL (35.1-46.3); Red Blood Cell Count 3.89 M/mm3 (3.80-5.20); White Blood Cell Count 6.92 K/mm3 (4.00-11.30)
[2022-04-22 15:40] LABS: Albumin, Blood 3.4 g/dL (3.4-5.0); Albumin/Globulin Ratio 0.9 (0.8-1.8); Bilirubin, Total 0.3 mg/dL (0.1-1.0); Bun/Creatinine Ratio 13.3 (12.0-20.0); Calcium, Blood 9.1 mg/dL (8.5-10.1); Creatinine, Blood 0.9 mg/dL (0.40-1.00); Globulin, Blood 3.7 g/dL (2.2-4.0); Potassium, Blood 3.4 mmol/L (3.5-5.5); Total Protein, Blood 7.1 g/dL (6.4-8.2)
== END ==
LOC: LAB SHORT 15:17
PROVIDERS: General Practice
DX: K85.90 Acute pancreatitis without necrosis or infection, unspecified (principal)
CPT/HCPCS: 80053; 83690; 85025

== ENCOUNTER 2023-08-09 08:12 | Day surgery (SDC) | payer OTHER ==
[~2023-08-09] VITALS: Ht 165.1 cm; Wt 79.4 kg
[2023-08-09] VITALS (10 sets, daily range): BP systolic 90–120; BP diastolic 63–80
[~2023-08-09 08:12] MED LIST changes: +FENO67 PO; +METO10 PO; +POTCHL20ER PO
--- NOTE | 2023-08-09 11:12 | NUR ---
PT RETURNED TO RECOVERY ROOM IN BED. RIGHT RADIAL TR BAND SITE SOFT NON-TENDER WITH NO HEMATOMA, NO PULSATILE BLEEDING AND WRIST BOARD IN PLACE. PT DENIES CP. CALL LIGHT IN REACH.
--- NOTE | 2023-08-09 12:51 | NUR ---
NO CHANGES TO R RAD TR BAND SITE.
--- NOTE | 2023-08-09 13:22 | NUR ---
8 CC OF AIR REMOVED OUT OF NOW DEFLATED RIGHT TR OVER 10 MIN; SOFT WITH NO HEMATOMA, NO PULASATILE BLEEDING AND WRIST BOARD IN PLACE. DISCHARGE INSTRUCTIONS REVIEWED ALL QUESTIONS ANSWERED.
--- NOTE | 2023-08-09 13:43 | NUR ---
NO CHANGES TO DEFLATED R TR BAND.
--- NOTE | 2023-08-09 14:39 | NUR ---
NO CHANGES TO DEFLATED R TR BAND. DEFLATED TR BAND REMOVED AND POLLYMEM PLACED OVER R RAD SITE WITH RIGHT WRIST BOARD IN PLACE. 20 IV DISCONTINUED WITH INTACT CANNULA FROM LEFT AC. PT'S DAUGHTER BROUGHT LIFE VEST WHICH PT PUT ON. PT ESCORTED OUT VIA WHEELCHAIR ESCORT.
== END 2023-08-09 14:53 | disposition home or self-care (01) ==
LOC: MHTC 08:12
DX: I47.20 Ventricular tachycardia, unspecified (principal); I12.9 Hypertensive chronic kidney disease with stage 1 through stage 4 chronic kidney disease, or unspecified chronic kidney disease; N18.9 Chronic kidney disease, unspecified; I25.10 Atherosclerotic heart disease of native coronary artery without angina pectoris; E78.5 Hyperlipidemia, unspecified; I25.2 Old myocardial infarction; Z95.5 Presence of coronary angioplasty implant and graft; Z79.899 Other long term (current) drug therapy; Z79.82 Long term (current) use of aspirin; Z79.02 Long term (current) use of antithrombotics/antiplatelets; Z88.5 Allergy status to narcotic agent; Z88.6 Allergy status to analgesic agent; Z88.2 Allergy status to sulfonamides; Z88.8 Allergy status to other drugs, medicaments and biological substances
CPT/HCPCS: 76937; 85347; 92920; 92978; 93458; 99152; 99153; A9270; C1725; C1753; C1769; C1887; C1894; J1644; J2250; J3010; J7030; J7050; Q9967